=== PATIENT | female | born 1985 | race Caucasian/White ===

== ENCOUNTER 2021-05-04 03:14 | Emergency (ER) | payer OTHER ==
[~2021-05-04] VITALS: Ht 162.6 cm; Wt 79.5 kg
[~2021-05-04 03:14] MED LIST: D3400TAB PO; DULC100C PO; HYDR-3715 PO; IBUP-1022 PO; LORA-243 PO; MULTCAP PO; OXYC1TAB30 GT; PANT40TA29 PO; TRAZ-252 FT; VITA100L PO; ZOFR4TAB16 PO
[2021-05-04 03:59] LABS: HEMATOCRIT 42.1 % (36.0-47.0); HEMOGLOBIN 14.2 g/dl (12.0-15.5); MEAN CORPUSCULAR HGB CONC 33.7 g/dl (32.0-36.5); MEAN CORPUSCULAR VOLUME 91.9 fl (80.0-96.0); PLATELET COUNT, AUTOMATED 314 10^3/uL (150-450); RED BLOOD COUNT 4.58 10^6/uL (4.00-5.40); WHITE BLOOD COUNT 15.3 10^3/uL (4.0-10.0)
[2021-05-04 04:34] LABS: AMPHETAMINES LEVEL URINE NEGATIVE (NEGATIVE); BARBITURATES URINE NEGATIVE (NEGATIVE); BENZODIAZEPINES URINE NEGATIVE (NEGATIVE); CANNABINOIDS URINE POSITIVE (NEGATIVE); COCAINE METABOLITE URINE NEGATIVE (NEGATIVE); METHADONE URINE NEGATIVE (NEGATIVE); OPIATES URINE NEGATIVE (NEGATIVE); PHENCYCLIDINE URINE NEGATIVE (NEGATIVE)
[2021-05-04 04:36] LABS: HCG, SERUM QUALITATIVE NEGATIVE (NEGATIVE)
[2021-05-04 04:48] LABS: ACETAMINOPHEN LEVEL < 2.0 UG/ML (10.0-30.0); ALBUMIN 4.3 GM/DL (3.2-5.2); ALT/SGPT 20 U/L (12-78); BILIRUBIN,DIRECT 0.1 MG/DL (0.0-0.2); BILIRUBIN,TOTAL 0.5 MG/DL (0.2-1.0); BLOOD UREA NITROGEN 12 MG/DL (7-18); CALCIUM LEVEL 9.2 MG/DL (8.5-10.1); CARBON DIOXIDE LEVEL 26 MEQ/L (21-32); CHLORIDE LEVEL 103 MEQ/L (98-107); CREATININE FOR GFR 0.87 MG/DL (0.55-1.30); ETHYL ALCOHOL (ETHANOL) < 0.003 % (0.000-0.010); GLOMERULAR FILTRATION RATE > 60.0 (>60); GLUCOSE, FASTING 143 MG/DL (70-100); POTASSIUM SERUM 3.8 MEQ/L (3.5-5.1); SALICYLATE LEVEL 3.2 MG/DL (5.0-30.0); SODIUM LEVEL 139 MEQ/L (136-145); TOTAL PROTEIN 7.9 GM/DL (6.4-8.2)
[2021-05-04] MEDS ORDERED: ACETAMINOPHEN 500 MG TAB PO ONE (08:10)
[2021-05-04 12:10] VITALS: BP 115/56
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
== END 2021-05-04 16:19 | disposition home or self-care (01) ==
LOC: M ED 03:14
DX: F43.0 Acute stress reaction (principal); F12.10 Cannabis abuse, uncomplicated; Z88.0 Allergy status to penicillin; Z88.5 Allergy status to narcotic agent; Z91.018 Allergy to other foods; Z91.040 Latex allergy status

== ENCOUNTER 2021-05-24 17:37 | Inpatient (IN) | payer MEDICAID, OTHER ==
[~2021-05-24] VITALS: Ht 162.6 cm; Wt 73.6 kg
[2021-05-24 19:40] LABS: HEMATOCRIT 41.9 % (36.0-47.0); HEMOGLOBIN 13.7 g/dl (12.0-15.5); MEAN CORPUSCULAR HEMOGLOBIN 30.5 pg (27.0-33.0); MEAN CORPUSCULAR HGB CONC 32.7 g/dl (32.0-36.5); MEAN CORPUSCULAR VOLUME 93.3 fl (80.0-96.0); PLATELET COUNT, AUTOMATED 276 10^3/uL (150-450); RED BLOOD COUNT 4.49 10^6/uL (4.00-5.40); WHITE BLOOD COUNT 11.1 10^3/uL (4.0-10.0)
[2021-05-24 19:42] LABS: AMPHETAMINES LEVEL URINE NEGATIVE (NEGATIVE); BARBITURATES URINE NEGATIVE (NEGATIVE); BENZODIAZEPINES URINE NEGATIVE (NEGATIVE); CANNABINOIDS URINE POSITIVE (NEGATIVE); COCAINE METABOLITE URINE NEGATIVE (NEGATIVE); METHADONE URINE NEGATIVE (NEGATIVE); OPIATES URINE NEGATIVE (NEGATIVE); PHENCYCLIDINE URINE NEGATIVE (NEGATIVE)
[2021-05-24 19:45] LABS: HCG, SERUM QUALITATIVE NEGATIVE (NEGATIVE)
[2021-05-24 19:56] LABS: ACETAMINOPHEN LEVEL < 2.0 UG/ML (10.0-30.0); ALBUMIN 4.1 GM/DL (3.2-5.2); ALT/SGPT 23 U/L (12-78); BILIRUBIN,DIRECT 0.1 MG/DL (0.0-0.2); BILIRUBIN,TOTAL 0.3 MG/DL (0.2-1.0); BLOOD UREA NITROGEN 13 MG/DL (7-18); CALCIUM LEVEL 9.3 MG/DL (8.5-10.1); CARBON DIOXIDE LEVEL 27 MEQ/L (21-32); CHLORIDE LEVEL 106 MEQ/L (98-107); CREATININE FOR GFR 0.83 MG/DL (0.55-1.30); ETHYL ALCOHOL (ETHANOL) < 0.003 % (0.000-0.010); GLOMERULAR FILTRATION RATE > 60.0 (>60); GLUCOSE, FASTING 95 MG/DL (70-100); SALICYLATE LEVEL 3.2 MG/DL (5.0-30.0); SODIUM LEVEL 141 MEQ/L (136-145); TOTAL PROTEIN 7.8 GM/DL (6.4-8.2)
[2021-05-24] MEDS ORDERED: HOME MED LIST COMPLETE! XX SCH (21:20)
[2021-05-24 22:53] LABS: RSV AMPLIFICATION NEGATIVE (NEGATIVE)
[2021-05-24] MEDS ORDERED: OLANZapine ORAL DISINTEGRATING TAB 5MG PO PRN (23:25)
[2021-05-24] MEDS ORDERED: MAALOX 30 ML SUSP *UDC PO PRN (23:25)
[2021-05-24] MEDS ORDERED: hydrOXYzine 25 MG TAB PO PRN (23:25)
[2021-05-24] MEDS ORDERED: traZODone 50 MG TAB PO PRN (23:25)
[2021-05-24] MEDS ORDERED: ACETAMINOPHEN TAB 650MG DOSE (2X325MG) PO PRN (23:25)
[2021-05-24] MEDS ORDERED: MOM 30ML SUSPENSION UDC PO PRN (23:25)
[2021-05-25 00:24] VITALS: BP 116/58
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
[2021-05-25] MEDS: SERTRALINE HCL 50 MG TAB PO SCH (10:54)
--- NOTE | 2021-05-25 14:26 | CR.PDOC ---
General Date of Consultation: May 25, 2021 Attending Physician: Lynda Vasques MD Consultation HISTORY OF PRESENT ILLNESS: 35 y/o F with PMH of adjustment disorder, PTSD, uterine cancer s/p partial hysterectomy who was admitted to inpatient mental health that she diagnosis of unspecified depressive disorder and suicidal ideation. Please refer to psychiatric H&P. The patient on exam denied any current homicidal ideation, suicidal ideation, visual or auditory hallucinations, increased hopelessness but admits to occasional disrupted sleep. She states she has a history of depression and has had suicidal thoughts in the past, last suicide attempt was in 2018 but she was stopped by a passerby. She currently denies chest pain, shortness of breath, nausea, vomiting, fevers, chills. She complains of constipation. REVIEW OF SYSTEMS: CONSTITUTIONAL: Denies lack of energy, unexplained weight gain or weight loss, l oss of appetite, fever, night sweats EYES: Denies eye drainage, eye pain, visual changes, dry/irritated eye EARS, NOSE, MOUTH, THROAT: Denies difficulty hearing, ringing in ears, mouth sores, loose teeth, sore throat, facial numbness or pain NECK: Denies swollen glands CARDIOVASCULAR: Denies irregular heartbeat, racing heart, chest pains, swelling of feet or legs, pain in legs with walking RESPIRATORY: Denies shortness of breath, night sweats, wheezing, sputum production, oxygen at home, coughing up blood, cough lasting > 1 month GASTROINTESTINAL: Denies abdominal pain, bloody stool, diarrhea, heartburn, nausea, vomiting GENITOURINARY: Denies painful urination, bloody urine, frequent urination, urgency, leaking urine, impotence MUSCULOSKELETAL: Denies joint pain, muscle pain, leg swelling INTEGUMENTARY: Denies rash, itching, new skin lesion, change in existing skin lesion, hair loss or increase, breast changes. NEUROLOGICAL: Denies headaches, dizziness, difficulty walking, numbness or tingling PSYCHIATRIC: Denies mood swings, hallucinations PAST MEDICAL HISTORY: adjustment disorder, PTSD, hx of suicidal ideation/attempt, uterine cancer s/p partial hysterectomy PAST SURGICAL HISTORY: partial hysterectomy FAMILY HISTORY: maternal grandfather- MM paternal aunt- breast cancer paternal grandmother- breast cancer SOCIAL HISTORY: 1/2 PPD cigarettes for 26 years. Drinks alcohol socially. Denies illicit drug use ALLERGIES: Please see below. HOME MEDICATIONS: Please see below. PHYSICAL EXAMINATION: VS: Please see below CONSTITUTIONAL: No acute distress, resting comfortably, AAO x 3 EYES: PERRLA, EOM intact HENT, MOUTH: Normocephalic, atraumatic, moist mucous membranes NECK: SUPPLE, no JVD, no lymphadenopathy, no carotid bruit CV: Regular rate and rhythm, S1S2 normal, no murmurs/rubs/gallops RESPIRATORY: Clear to auscultation bilaterally, no rales/rhonchi/wheezes GI: BS positive in 4 quadrants, soft, nontender, nondistended, no rebound or guarding, no organomegaly : Deferred MUSCULOSKELETAL: Normal ROM. No cyanosis, clubbing, swelling, joint deformity, extremity edema INTEGUMENTARY: Intact, no rashes, no lesions, no erythema NEUROLOGIC: Cranial Nerves II-XII are intact, no focal deficits PSYCHIATRIC: Mood and affect are normal LABORATORY DATA: Please see below IMAGING: None ASSESSMENT: 35 y/o F admitted to [facility] for unspecified depressive d/o, suicidal ideations, PTSD. PLAN: Unspecified depressive d/o, suicide attempt -Please see psychiatry note, plan per primary team PTSD -Plan per primary team Constipation -Per patient takes miralax at home without it helping much -Encourage hydration throughout day, adding stool softner DISPOSITION: Thank you kindly for this consult. Will sign off but if needed again please let us know. Vital Signs/I&O Vital Signs Date Time Temp Pulse Resp B/P (MAP) Pulse Ox O2 Delivery O2 Flow Rate FiO2 05/25/21 00:24 97.1 68 16 116/58 (77) 96 Room Air Laboratory Data Labs 24H Laboratory Tests 2 05/24/21 19:03: Nucleated Red Blood Cells % (auto) 0.0, Anion Gap 8, Glomerular Filtration Rate > 60.0, Calcium Level 9.3, Total Bilirubin 0.3, Direct Bilirubin 0.1, Aspartate Amino Transf (AST/SGOT) 12, Alanine Aminotransferase (ALT/SGPT) 23, Alkaline Phosphatase 88, Total Protein 7.8, Albumin 4.1, Albumin/Globulin Ratio 1.1L, Thyroid Stimulating Hormone (TSH) 1.470, Human Chorionic Gonadotropin, Qual NEGATIVE, Salicylates Level 3.2L, Urine Opiates Screen NEGATIVE, Urine Methadone Screen NEGATIVE, Acetaminophen Level < 2.0L, Urine Barbiturates Screen NEGATIVE, Urine Phencyclidine Screen NEGATIVE, Urine Amphetamines Screen NEGATIVE, Urine Benzodiazepines Screen NEGATIVE, Urine Cocaine Metabolite Screen NEGATIVE, Urine Cannabinoids Screen POSITIVEH, Ethyl Alcohol Level < 0.003 05/24/21 22:09: Coronavirus (COVID-19)(PCR) NEGATIVE, Influenza Type A (RT-PCR) NEGATIVE, Influenza Type B (RT-PCR) NEGATIVE, Respiratory Syncytial Virus (PCR) NEGATIVE CBC/BMP Laboratory Tests 05/24/21 19:03 Allergies Coded Allergies: Penicillins (Verified Allergy, Intermediate, Hives and SOB, 05/04/21) amoxicillin (Verified Allergy, Intermediate, Hives and SOB, 05/04/21) doxycycline (Verified Allergy, Intermediate, ITCHY, HIVES, 05/24/21) [place] (Verified Allergy, Mild, Hives, 05/04/21) codeine (Verified Allergy, Mild, Hives and Dizziness, 05/04/21) latex (Verified Allergy, Mild, HIVES, 05/04/21) Home Medications No Active Prescriptions or Reported Meds Lynda Vasques MD May 25, 2021 14:26
[2021-05-25] MEDS ORDERED: MIRALAX *UNIT DOSE* 17GM PACKET PO PRN (14:30)
[2021-05-25 19:27] VITALS: BP 118/60
[2021-05-25] MEDS: DOCUSATE SODIUM 100MG CAPSULE PO SCH (21:00)
[2021-05-25] MEDS: PRAZOSIN 1 MG CAP PO SCH (21:09)
[2021-05-26 07:32] VITALS: BP 96/51
[2021-05-26] MEDS: DOCUSATE SODIUM 100MG CAPSULE PO SCH ×2 (09:00→21:09)
[2021-05-26] MEDS: SERTRALINE HCL 50 MG TAB PO SCH (10:13)
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
[2021-05-26 19:15] VITALS: BP 120/80
[2021-05-26 21:09] VITALS: BP 131/71
[2021-05-26] MEDS: PRAZOSIN 1 MG CAP PO SCH (21:09)
[2021-05-27 06:25] VITALS: BP 106/54
[2021-05-27] MEDS: SERTRALINE HCL 50 MG TAB PO SCH (08:07)
[2021-05-27] MEDS: DOCUSATE SODIUM 100MG CAPSULE PO SCH ×2 (08:08→20:47)
[2021-05-27] MEDS: ONDANSETRON 4 MG TAB PO SCH ×2 (12:04→17:28)
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
[2021-05-27 22:00] VITALS: BP 114/59
[2021-05-28] MEDS: ONDANSETRON 4 MG TAB PO SCH ×3 (00:27→11:46)
[2021-05-28 06:47] VITALS: BP 111/64
[2021-05-28] MEDS: DOCUSATE SODIUM 100MG CAPSULE PO SCH (08:01)
[2021-05-28] MEDS: SERTRALINE HCL 50 MG TAB PO SCH (08:01)
[2021-05-28] MEDS ORDERED: TRAZ-252 PO (11:46)
[2021-05-28] MEDS ORDERED: SERT50TA29 PO (11:46)
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
--- NOTE | 2021-05-30 18:41 | MHIPNPDOC ---
[facility] Progress Note Progress Note DATE OF SERVICE: 05/24/21 THIS IS A LATE ENTRY On 05/24/21, Emergency staff member presented Ms. Viviana Salas to me, as I was the Psychiatrist precision grinder external. I t was reported she had made suicidal statements to her website developer who reported this to [facility] Police. The patient was conside red to be in danger to herself, since she was suicidal and her judgment and insight seemed to be limited at that time Vital Signs Vital Signs Date Time Temp Pulse Resp B/P (MAP) Pulse Ox O2 Delivery O2 Flow Rate FiO2 05/28/21 06:47 97.6 54 16 111/64 (80) 95 Room Air Current Medications Current Medications Medications (Trade) Dose Ordered Sig/Temi Route PRN Reason Start Time Stop Time Status Last Admin Dose Admin Acetaminophen (Tylenol Tab) 650 mg Q6HP PRN PO HEADACHE or MILD DISCOMFORT 05/24/21 23:25 05/28/21 14:07 DC Al Hydrox/Mg Hydrox/Simethicone (Mylanta) 30 ml Q4HP PRN PO HEARTBURN/INDIGESTION 05/24/21 23:25 05/28/21 14:07 DC Docusate Sodium (Colace) 100 mg BID PO 05/25/21 21:00 05/28/21 14:07 DC 05/28/21 08:01 Home Med (Home Med List Complete!) ASDIRECTED XX 05/24/21 21:20 05/24/21 21:25 DC Hydroxyzine HCl (Atarax) 25 mg Q8H PRN PO ANXIETY 05/24/21 23:25 05/28/21 14:07 DC Magnesium Hydroxide (Milk Of Magnesia) 30 ml DAILYPRN PRN PO CONSTIPATION 05/24/21 23:25 05/28/21 14:07 DC Olanzapine (ZyPREXA ZYDIS) 5 mg Q6HP PRN PO AGITATION 05/24/21 23:25 05/28/21 14:07 DC Ondansetron HCl (Zofran) 4 mg Q6H PO 05/27/21 12:00 05/28/21 14:07 DC 05/28/21 11:46 Polyethylene Glycol (Miralax) 1 pkt DAILYPRN PRN PO CONSTIPATION 05/25/21 14:30 05/28/21 14:07 DC Prazosin HCl (Minipress) 1 mg QHS PO 05/25/21 21:00 05/27/21 09:29 DC 05/26/21 21:09 Sertraline HCl (Zoloft) 50 mg DAILY PO 05/25/21 09:00 05/28/21 14:07 DC 05/28/21 08:01 Trazodone HCl (Desyrel) 50 mg QHSP PRN PO INSOMNIA 05/24/21 23:25 05/28/21 14:07 DC 05/27/21 22:56 Allergies Coded Allergies: Penicillins (Verified Allergy, Intermediate, Hives and SOB, 05/04/21) amoxicillin (Verified Allergy, Intermediate, Hives and SOB, 05/04/21) doxycycline (Verified Allergy, Intermediate, ITCHY, HIVES, 05/24/21) [place] (Verified Allergy, Mild, Hives, 05/04/21) codeine (Verified Allergy, Mild, Hives and Dizziness, 05/04/21) latex (Verified Allergy, Mild, HIVES, 05/04/21) TARSHA DELGADILLO MD May 30, 2021 18:41
== END 2021-05-28 14:06 | disposition home or self-care (01) | DRG 755 ==
LOC: M ED 17:37 → M PSY 23:45 → M ED 23:45 → M PSY 05-25 10:58
PROVIDERS: ADMIT Student in an Organized Health Care Education/Training Program; ATTEND Student in an Organized Health Care Education/Training Program
DX: F43.10 Post-traumatic stress disorder, unspecified (principal); F32.9 Major depressive disorder, single episode, unspecified; F17.210 Nicotine dependence, cigarettes, uncomplicated; K59.00 Constipation, unspecified; Z81.1 Family history of alcohol abuse and dependence; Z62.810 Personal history of physical and sexual abuse in childhood; Z91.410 Personal history of adult physical and sexual abuse; Z81.8 Family history of other mental and behavioral disorders; Z20.822 Contact with and (suspected) exposure to COVID-19; Z88.0 Allergy status to penicillin; Z88.1 Allergy status to other antibiotic agents; Z91.018 Allergy to other foods; Z91.040 Latex allergy status; Z91.51 Personal history of suicidal behavior; Z85.41 Personal history of malignant neoplasm of cervix uteri

== ENCOUNTER 2021-06-05 23:33 | Inpatient (IN) | payer MEDICAID, OTHER ==
[~2021-06-05] VITALS: Ht 162.6 cm; Wt 75.3 kg
[~2021-06-05 23:33] MED LIST changes: +SERT50TA29 PO; +TRAZ-252 PO
--- OUTSIDE RECORDS SUMMARY | 2021-06-05 23:38 | CCD ---
Author Viviana Raines Organization Unknown Address [address] [address] Phone Care Team Providers Care Spot Welder Body Assembly Name Role Phone Iona Oliver PCP Chief Complaint and Reason for Visit Chief Complaint Allergies, Adverse Reactions, Alerts No Data in Section Problem List Concept Problem Description Status Start Date Created Date Resolv ed Date Snomed Code F32.9 Unspecified depressive Disorder Active 04/04/20 21 Medications No Data in Section Social History Social History Element Description Concept Effective Date Smoking Status Unknown if ever smoked [id number] Immunizations No Data in Section Vital Signs No Data in Section Procedures Date Concept Id Description Targeted Site Concept Targeted Site Concept Type 04/04/2021 44513 Extended Individual Psychotherapy - 45 min CPT Patient has no history of implantable de vices Encounters Encounter Start Date End Date Encounter Type Description Diagnosis Di agnosis Desc Location Author First Name Author Last Name Npid Taxonomy Cod e Taxonomy Desc Phone Number Location Addr1 Location Addr2 Location [facility] Location [facility] [id number] 04/04/2021 04/04/2021 96763 Extended Individual Psych otherapy - 45 min F32.9 Major depressive disorder, single episode, unspecified [facility] Benito Monson [id number] Mental Health [id number] [address] [address] Plan of Treatment No Data in Section Lab Results No Data in Section Instructions No Data in Section Insurance Providers Insurance Id Policy Effective Date Policy Thru Date Company N hieu [id number] 2021 SELF PAY
--- OUTSIDE RECORDS SUMMARY | 2021-06-05 23:38 | CCD ---
Author Author [facility] Organization [facility] Address Unknown Phone Unavailable Care Team Providers Care [facility] Teacher Name Role Phone Iona Oliver Unavailable Iona Oliver Unavailable Re-disclosure Warning The records that you are about to access may contain information from federally-assisted alcohol or drug abuse programs. If such information is present, then the following federally mandated warning applies: This information has been disclosed to you from records protected by federal confidentiality rules (42 CFR part 2). The federal rules prohibit you from making any further disclosure of this information unless further disclosure is expressly permitted by the written consent of the person to whom it pertains or as otherwise permitted by 42 CFR part 2. A general authorization for the release of medical or other information is NOT sufficient for this purpose. The Federal rules restrict any use of the information to criminally investigate or prosecute any alcohol or drug abuse patient.The records that you are about to access may contain highly sensitive health information, the redisclosure of which is protected by Article 27-F of the [facility] Public Health law. If you continue you may have access to information: Regarding HIV / AIDS; Provided by facilities licensed or operated by the [facility] Office of Mental Health; or Provided by the [facility] Office for People With Developmental Disabilities. If such information is present, then the following [facility] mandated warning applies: This information has been disclosed to you from confidential records which are protected by state law. State law prohibits you from making any further disclosure of this information without the specific written consent of the person to whom it pertains, or as otherwise permitted by law. Any unauthorized further disclosure in violation of state law may result in a fine or snf sentence or both. A general authorization for the release of medical or other information is NOT sufficient authorization for further disc losure. Encounters Encounter Providers Location Date Indications Data Source(s ) Extended Individual Psychotherapy - 45 min Attender: Garfield Magñaa [facility] Longterm 04/04/2021 09:30:00 AM EDT - 04/04/2021 09:30:00 AM EDT [facility] ([facility]) Attender: Iona Oliver 04/04/2021 12:00:00 AM E DT [facility] ([facility]) Medications Medication Brand Name Start Date Product Form Dose Route Admi nistrative Instructions Pharmacy Instructions Status Indications Reaction Description Data Source(s) 50 mg 05/29/2021 12:00:00 AM EDT tablet 7 TAKE ONE TABLET BY MOUTH DAILY FOR MOOD TAKE ONE TABLET BY MOUTH DAILY FOR MOOD SOLD: 05/29/2021 [facility] Insurance Providers Payer name Policy type / Coverage type Policy ID Covered libertarian ID Covered libertarian's relationship to mejia Policy Mejia Plan Information Medicaid P [id number] S [id number] Managed Care BCBS O [id number] S [id number] Managed Care - [facility] Community Plan P [id number] S [id number] Managed Care - Community Plan [facility] P [id number] S [id number] Medicaid S [id number] S [id number] OTHER LIABILITY P [id number] S [id number] [facility] [id number] SP [id number] Medicaid S [id number] S [id number] [employer]UE [employer] PLAN [id number] SP [id number] O BLUE [id number] SP [id number] [facility] COMMUNITY PL[facility] [id number] SP [id number] [facility] [id number] SP [id number] [facility] COMMUNITY PLAN [facility] [id number] SP [id number] [facility] [id number] SP [id number] [facility] P [id number] S [id number] Problems, Conditions, and Diagnoses Code Display Name Description Problem Type Effective Dates Data Source(s) F32.9 Major depressive disorder, single episod e, unspecified Unspecified depressive Disorder Condition 04/04/2021 12:00:00 AM EDT [facility] ( e [facility]) Surgeries/Procedures Procedure Description Date Indications Data Source(s) Extended Individual Psychotherapy - 45 min 04/04/2021 12:00:00 AM EDT - 04/04/2021 12:00:00 AM EDT [facility] ([facility]) Extended Individual Psychotherapy - 45 min 12:00:00 AM EDT [facility] ([facility]) Results ID Date Data Source [id number] 05/24/2021 10:09:00 PM EDT [facility] Name Value Range Interpretation Code Description Data Frances rce(s) Supporting Document(s) SARS coronavirus 2 RNA [Presence] in Res piratory specimen by [facility] with probe detection NEGATIVE [facility] This lab was ordered by [facility] a nd reported by [facility]. Procedure Social History Code Duration Value Status Description Data Source(s ) Smoking 04/04/2021 12:00:00 AM EDT Unknown if ever smoked comp leted Unknown if ever smoked [facility] ([facility] [address])
[2021-06-06 00:42] LABS: HEMATOCRIT 43.6 % (36.0-47.0); HEMOGLOBIN 13.8 g/dl (12.0-15.5); MEAN CORPUSCULAR HEMOGLOBIN 30.4 pg (27.0-33.0); MEAN CORPUSCULAR HGB CONC 31.7 g/dl (32.0-36.5); PLATELET COUNT, AUTOMATED 293 10^3/uL (150-450); RED BLOOD COUNT 4.54 10^6/uL (4.00-5.40); WHITE BLOOD COUNT 11.9 10^3/uL (4.0-10.0)
[2021-06-06 00:43] LABS: HCG, SERUM QUALITATIVE NEGATIVE (NEGATIVE)
[2021-06-06 01:23] LABS: ACETAMINOPHEN LEVEL < 2.0 UG/ML (10.0-30.0); ALBUMIN 4.1 GM/DL (3.2-5.2); ALT/SGPT 17 U/L (12-78); BILIRUBIN,DIRECT < 0.1 MG/DL (0.0-0.2); BILIRUBIN,TOTAL 0.2 MG/DL (0.2-1.0); BLOOD UREA NITROGEN 14 MG/DL (7-18); CARBON DIOXIDE LEVEL 30 MEQ/L (21-32); CHLORIDE LEVEL 108 MEQ/L (98-107); ETHYL ALCOHOL (ETHANOL) < 0.003 % (0.000-0.010); GLOMERULAR FILTRATION RATE > 60.0 (>60); GLUCOSE, FASTING 121 MG/DL (70-100); POTASSIUM SERUM 4.7 MEQ/L (3.5-5.1); SALICYLATE LEVEL 3.3 MG/DL (5.0-30.0); SODIUM LEVEL 142 MEQ/L (136-145); TOTAL PROTEIN 7.7 GM/DL (6.4-8.2)
[2021-06-06 01:24] LABS: AMPHETAMINES LEVEL URINE NEGATIVE (NEGATIVE); BARBITURATES URINE NEGATIVE (NEGATIVE); BENZODIAZEPINES URINE NEGATIVE (NEGATIVE); CANNABINOIDS URINE POSITIVE (NEGATIVE); COCAINE METABOLITE URINE NEGATIVE (NEGATIVE); METHADONE URINE NEGATIVE (NEGATIVE); OPIATES URINE NEGATIVE (NEGATIVE); PHENCYCLIDINE URINE NEGATIVE (NEGATIVE)
[2021-06-06] MEDS ORDERED: MOM 30ML SUSPENSION UDC PO PRN (02:55)
[2021-06-06] MEDS ORDERED: ACETAMINOPHEN TAB 650MG DOSE (2X325MG) PO PRN (02:55)
--- OUTSIDE RECORDS SUMMARY | 2021-06-06 02:59 | CCD ---
Author Author [facility] Organization [facility] Address Unknown Phone Unavailable Care Team Providers Care Behavioral Therapy Coordinator Name Role Phone Iona Oliver Unavailable Iona [...] is protected by Article 27-F of the [facility] Public Health law. If you continue you may have access to information: Regarding HIV / AIDS; Provided by facilities licensed or operated by the [facility] Office of Mental Health; or Provided by the [facility] Office for People With Developmental Disabilities. If such information is present, then the following [facility] mandated warning applies: This information has been [...] law may result in a fine or prison sentence or both. A general authorization for the release of medical or other information is NOT sufficient authorization for further disc losure. Encounters Encounter Providers Location Date Indications Data Source(s ) Extended Individual Psychotherapy - 45 min Attender: Garfield Magaña [facility] 04/04/2021 09:30:00 AM EDT - 04/04/2021 09:30:00 AM EDT [facility] ([facility]) Attender: Iona Oliver 04/04/2021 12:00:00 AM E DT [facility] ([facility]) Medications Medication Brand Name Start Date Product Form Dose Route Admi nistrative Instructions Pharmacy Instructions Status Indications Reaction Description Data Source(s) 50 mg 05/29/2021 12:00:00 AM EDT tablet 7 TAKE ONE TABLET BY MOUTH DAILY FOR MOOD TAKE ONE TABLET BY MOUTH DAILY FOR MOOD SOLD: 05/29/2021 [facility] Insurance Providers Payer name Policy type / Coverage type Policy ID Covered constitution party ID Covered constitution party's relationship to mejia Policy Mejia Plan Information Medicaid P [id number] S [id number] Managed Care BCBS O [id number] S [id number] Managed Care - [facility] Community Plan P [id number] S [id number] Managed Care - Community Plan [facility] P [id number] S [id number] Medicaid S [id number] S [id number] OTHER LIABILITY P [id number] S [id number] [facility] [id number] SP [id number] Medicaid S [id number] S [id number] BLUE CROSS KILPATRICK PLAN [id number] SP [id number] O BLUE [id number] SP [id number] [id number] SP [id number] [facility] [id number] SP [id number] [facility] [id number] SP [id number] [facility] [id number] SP [id number] [facility] P [id number] S [id number] Problems, Conditions, and Diagnoses Code Display Name Description Problem Type Effective Dates Data Source(s) F32.9 Major depressive disorder, single episod e, unspecified Unspecified depressive Disorder Condition 04/04/2021 12:00:00 AM EDT [facility] ( e [facility]) Surgeries/Procedures Procedure Description Date Indications Data Source(s) Extended Individual Psychotherapy - 45 min 04/04/2021 12:00:00 AM EDT - 04/04/2021 12:00:00 AM EDT [facility] ([facility]) Extended Individual Psychotherapy - 45 min 12:00:00 AM EDT [facility] ([facility]) Results ID Date Data Source [id number] 05/24/2021 10:09:00 PM EDT [facility] Name Value Range Interpretation Code Description Data Frances rce(s) Supporting Document(s) SARS coronavirus 2 RNA [Presence] in Res piratory specimen by PARISH with probe detection NEGATIVE [facility] This lab was ordered by [facility] a nd reported by [facility]. Procedure Social History Code Duration Value Status Description Data Source(s ) Smoking 04/04/2021 12:00:00 AM EDT Unknown if ever smoked comp leted Unknown if ever smoked [facility] ([facility])
[2021-06-06] MEDS ORDERED: GLUCTAB6 PO (03:07)
[2021-06-06] MEDS ORDERED: SERT-141 PO (03:07)
[2021-06-06] MEDS ORDERED: VITATAB73 PO (03:07)
[2021-06-06] MEDS ORDERED: ASPI1CHW3 PO (03:07)
[2021-06-06] MEDS ORDERED: FISH1000 PO (03:07)
[2021-06-06] MEDS ORDERED: EMER1PAK PO (03:07)
[2021-06-06] MEDS ORDERED: HOME MED LIST COMPLETE! XX SCH (03:10)
--- OUTSIDE RECORDS SUMMARY | 2021-06-06 03:34 | CCD ---
Author Author [facility] Organization [facility] Address Unknown Phone Unavailable Care Team Providers Care Estate Manager Name Role Phone Iona Oliver Unavailable Iona [...] is protected by Article 27-F of the [facility] Public Health law. If you continue you may have access to information: Regarding HIV / AIDS; Provided by facilities licensed or operated by the [facility] Office of Mental Health; or Provided by the [facility] Office for People With Developmental Disabilities. If such information is present, then the following [facility] mandated warning applies: This information has [...] law may result in a fine or long-term sentence or both. A general authorization for the release of medical or other information is NOT sufficient authorization for further disc losure. Encounters Encounter Providers Location Date Indications Data Source(s ) Extended Individual Psychotherapy - 45 min Attender: Garfield Magaña [facility] Intermediate 04/04/2021 09:30:00 AM EDT - 04/04/2021 09:30:00 AM EDT [facility] ([facility]) Attender: Iona Oliver 04/04/2021 12:00:00 AM E DT [facility] ([facility]) Medications Medication Brand Name Start Date Product Form Dose Route Admi nistrative Instructions Pharmacy Instructions Status Indications Reaction Description Data Source(s) 50 mg 05/29/2021 12:00:00 AM EDT tablet 7 TAKE ONE TABLET BY MOUTH DAILY FOR MOOD TAKE ONE TABLET BY MOUTH DAILY FOR MOOD SOLD: 05/29/2021 [facility] Insurance Providers Payer name Policy type / Coverage type Policy ID Covered republican ID Covered republican's relationship to mejia Policy Mejia Plan Information Medicaid P [id number] S [id number] Managed Care BCBS O [id number] S [id number] Managed Care - [facility] Community Plan P [id number] S [id number] Managed Care - Community Plan [facility] P [id number] S [id number] Medicaid S [id number] S [id number] OTHER LIABILITY P [id number] S [id number] [facility] [id number] SP [id number] Medicaid S [id number] S [id number] BLUE CROSS KILPATRICK PLAN [id number] SP [id number] O BLUE [id number] SP [id number] [facility] [id number] SP [id number] [facility] [id number] SP [id number] [facility] [id number] SP [id number] [facility] [id number] SP [id number] [facility] P [id number] S [id number] Problems, Conditions, and Diagnoses Code Display Name Description Problem Type Effective Dates Data Source(s) F32.9 Major depressive disorder, single episod e, unspecified Unspecified depressive Disorder Condition 04/04/2021 12:00:00 AM EDT [facility] ( e [facility]) Surgeries/Procedures Procedure Description Date Indications Data Source(s) Extended Individual Psychotherapy - 45 min 04/04/2021 12:00:00 AM EDT - 04/04/2021 12:00:00 AM EDT [facility] ([facility]) Extended Individual Psychotherapy - 45 min 12:00:00 AM EDT [facility] ([facility]) Results ID Date Data Source [id number] 05/24/2021 10:09:00 PM EDT [facility] Name Value Range Interpretation Code Description Data Frances rce(s) Supporting Document(s) SARS coronavirus 2 RNA [Presence] in Res piratory specimen by PARISH with probe detection NEGATIVE [facility] This lab was ordered by [facility] a nd reported by [facility]. Procedure Social History Code Duration Value Status Description Data Source(s ) Smoking 04/04/2021 12:00:00 AM EDT Unknown if ever smoked comp leted Unknown if ever smoked [facility] ([facility])
[2021-06-06 04:00] VITALS: BP 129/79
[2021-06-06] MEDS ORDERED: SERTRALINE HCL 25 MG TABLET PO SCH (09:00)
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
[2021-06-06] MEDS: NICOTINE 14 MG/24 HR TRANSDERMAL TD SCH (10:58)
--- NOTE | 2021-06-06 13:04 | CR.PDOC ---
General Date of Consultation: Jun 06, 2021 Attending Physician: Lynda Vasques MD Consultation HISTORY OF PRESENT ILLNESS: 35 y/o F with PMH of adjustment disorder, PTSD, uterine cancer s/p partial hysterectomy who was admitted to inpatient mental health that she diagnosis of unspecified depressive disorder and suicidal ideation. Threatened to drink Elsa- Gail and her later called 911. [place] the bridge and admitted to depressive symptoms. The patient was brought to [facility] for further evaluation where she was admitted to inpatient mental health for diagnosis above. The patient had a recent hospitalization earlier this month for similar diagnosis. On my evaluation today, the patient denied any current homicidal ideation, suicidal ideation, visual or auditory hallucinations, increased hopelessness but admits to occasional disrupted sleep. The patient states that she did not threatened to kill herself Elsa-Gail but instead that "[place]", she states that [employer] on the phone changed it to say this. She currently denies chest pain, shortness of breath, nausea, vomiting, fevers, chills. REVIEW OF SYSTEMS: CONSTITUTIONAL: Denies lack of energy, unexplained weight gain or weight loss, loss of appetite, fever, night sweats EYES: Denies eye drainage, eye pain, visual changes, dry/irritated eye EARS, NOSE, MOUTH, THROAT: Denies difficulty hearing, ringing in ears, mouth sores, loose teeth, sore throat, facial numbness or pain NECK: Denies swollen glands CARDIOVASCULAR: Denies irregular heartbeat, racing heart, chest pains, swelling of feet or legs, pain in legs with walking RESPIRATORY: Denies shortness of breath, night sweats, wheezing, sputum production, oxygen at home, coughing up blood, cough lasting > 1 month GASTROINTESTINAL: Denies abdominal pain, bloody stool, diarrhea, heartburn, nausea, vomiting GENITOURINARY: Denies painful urination, bloody urine, frequent urination, urgency, leaking urine, impotence MUSCULOSKELETAL: Denies joint pain, muscle pain, leg swelling INTEGUMENTARY: Denies rash, itching, new skin lesion, change in existing skin lesion, hair loss or increase, breast changes. NEUROLOGICAL: Denies headaches, dizziness, difficulty walking, numbness or tingling PSYCHIATRIC: Denies mood swings, hallucinations PAST MEDICAL HISTORY: adjustment disorder, PTSD, hx of suicidal ideation/attempt, uterine cancer s/p partial hysterectomy, depression PAST SURGICAL HISTORY: partial hysterectomy FAMILY HISTORY: maternal grandfather- MM paternal aunt- breast cancer paternal grandmother- breast cancer SOCIAL HISTORY: 1/2 PPD cigarettes for 26 years. Drinks alcohol socially. Denies illicit drug use ALLERGIES: Please see below. HOME MEDICATIONS: Please see below. PHYSICAL EXAMINATION: VS: Please see below CONSTITUTIONAL: No acute distress, resting comfortably, AAO x 3 EYES: PERRLA, EOM intact HENT, MOUTH: Normocephalic, atraumatic, moist mucous membranes NECK: SUPPLE, no JVD, no lymphadenopathy, no carotid bruit CV: Regular rate and rhythm, S1S2 normal, no murmurs/rubs/gallops RESPIRATORY: Clear to auscultation bilaterally, no rales/rhonchi/wheezes GI: BS positive in 4 quadrants, soft, nontender, nondistended, no rebound or guarding, no organomegaly : Deferred MUSCULOSKELETAL: Normal ROM. No cyanosis, clubbing, swelling, joint deformity, extremity edema INTEGUMENTARY: Intact, no rashes, no lesions, no erythema NEUROLOGIC: Cranial Nerves II-XII are intact, no focal deficits PSYCHIATRIC: Mood and affect are normal LABORATORY DATA: Please see below IMAGING: None ASSESSMENT: 35 y/o F admitted to [facility] for unspecified depressive d/o, suicidal ideations, PTSD. PLAN: Unspecified depressive d/o, suicidal ideation -Please see psychiatry note, plan per primary team PTSD -Plan per primary team DISPOSITION: Thank you kindly for this consult. Will sign off but if needed again please let us know. Vital Signs/I&O Vital Signs Date Time Temp Pulse Resp B/P (MAP) Pulse Ox O2 Delivery O2 Flow Rate FiO2 06/06/21 10:30 Room Air 06/06/21 04:00 97.6 62 16 129/79 (96) 97 Laboratory Data Labs 24H Laboratory Tests 2 06/05/21 23:59: Nucleated Red Blood Cells % (auto) 0.0, Anion Gap 4L, Glomerular Filtration Rate > 60.0, Calcium Level 9.0, Total Bilirubin 0.2, Direct Bilirubin < 0.1, Aspartate Amino Transf (AST/SGOT) 14, Alanine Aminotransferase (ALT/SGPT) 17, Alkaline Phosphatase 80, Total Protein 7.7, Albumin 4.1, Albumin/Globulin Ratio 1.1L, Thyroid Stimulating Hormone (TSH) 1.250, Human Chorionic Gonadotropin, Qual NEGATIVE, Salicylates Level 3.3L, Urine Opiates Screen NEGATIVE, Urine Methadone Screen NEGATIVE, Acetaminophen Level < 2.0L, Urine Barbiturates Screen NEGATIVE, Urine Phencyclidine Screen NEGATIVE, Urine Amphetamines Screen NEG ATIVE, Urine Benzodiazepines Screen NEGATIVE, Urine Cocaine Metabolite Screen NEGATIVE, Urine Cannabinoids Screen POSITIVEH, Ethyl Alcohol Level < 0.003 06/06/21 02:54: Coronavirus (COVID-19)(PCR) NEGATIVE CBC/BMP Laboratory Tests 06/05/21 23:59 Allergies Coded Allergies: Penicillins (Verified Allergy, Intermediate, Hives and SOB, 05/04/21) amoxicillin (Verified Allergy, Intermediate, Hives and SOB, 05/04/21) doxycycline (Verified Allergy, Intermediate, ITCHY, HIVES, 05/24/21) Babatunde (Verified Allergy, Mild, Hives, 05/04/21) codeine (Verified Allergy, Mild, Hives and Dizziness, 05/04/21) latex (Verified Allergy, Mild, HIVES, 05/04/21) Home Medications Scheduled Ascorbic Acid/Multivit-Min (Emergen-C 1,000 mg Packet) 1,000 Mg Effpowdpkt, 1 BENJAMIN PO QWEEK, (Reported) Gluc Perera/Chondro Perera A/Vit C/Mn (Glucosamine Chondroitin Tab) 1 Each Tablet, 1 TAB PO QWEEK, (Reported) FRIDAYS [place]-3 Fatty Acids/Fish Oil (Fish Oil 1,000 mg Capsule) 1 Each Capsule, 1,000 MG PO 2XWK, (Reported) FRIDAY AND FRIDAY Sertraline Hcl (Sertraline HCl) 50 Mg Tablet, 50 MG PO Q2D, (Reported) EVERY OTHER NIGHT Vitamin B Complex (Vitamin B Complex) 1 Each Tablet, 1 TAB PO 3XW, (Reported) FRIDAY, FRIDAY AND FRIDAY Scheduled PRN Aspirin (Aspirin) 81 Mg Tab.chew, 81 MG PO DAILY PRN for HEADACHE, (Reported) Lynda Vasques MD Jun 06, 2021 13:04
[2021-06-06] MEDS: SERTRALINE HCL 25 MG TABLET PO SCH (15:09)
[2021-06-06 17:37] VITALS: BP 109/58
[2021-06-06] MEDS: ARIPiprazole 10 MG TAB PO SCH (22:19)
[2021-06-07] MEDS: ARIPiprazole 10 MG TAB PO SCH ×2 (03:00→21:00)
[2021-06-07 06:03] VITALS: BP 124/61
[2021-06-07 08:33] LABS: CHOLESTEROL RISK RATIO 2.934 (<5)
[2021-06-07 08:55] VITALS: BP 100/60
[2021-06-07] MEDS: SERTRALINE HCL 25 MG TABLET PO SCH (09:29)
[2021-06-07] MEDS: NICOTINE 14 MG/24 HR TRANSDERMAL TD SCH (09:29)
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
[2021-06-07 17:55] VITALS: BP 135/65
[2021-06-08 06:45] VITALS: BP 137/56
[2021-06-08] MEDS: NICOTINE 14 MG/24 HR TRANSDERMAL TD SCH (08:47)
[2021-06-08] MEDS: SERTRALINE HCL 25 MG TABLET PO SCH (08:47)
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
[2021-06-08] MEDS ORDERED: SODIUM CHLORIDE NASAL 0.65% SPRAY BTL (OCEAN) PRN (12:45)
[2021-06-08 18:57] VITALS: BP 130/70
[2021-06-08] MEDS: ARIPiprazole 2 MG TAB PO SCH (20:17)
[2021-06-09 07:28] VITALS: BP 112/62
[2021-06-09] MEDS: NICOTINE 14 MG/24 HR TRANSDERMAL TD SCH (08:33)
[2021-06-09] MEDS: SERTRALINE HCL 25 MG TABLET PO SCH (08:33)
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
[2021-06-09] MEDS: MAALOX 30 ML SUSP *UDC PO PRN (14:02)
[2021-06-09 18:42] VITALS: BP 141/69
[2021-06-09] MEDS: traZODone 50 MG TAB PO PRN (20:45)
[2021-06-09] MEDS: ARIPiprazole 2 MG TAB PO SCH (20:45)
[2021-06-10 06:00] VITALS: BP 145/72
[2021-06-10] MEDS: SERTRALINE HCL 25 MG TABLET PO SCH (08:20)
[2021-06-10] MEDS: NICOTINE 14 MG/24 HR TRANSDERMAL TD SCH (08:20)
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
[2021-06-10] MEDS: MAALOX 30 ML SUSP *UDC PO PRN (14:10)
[2021-06-10 18:36] VITALS: BP 119/62
[2021-06-10] MEDS: ARIPiprazole 2 MG TAB PO SCH (20:10)
[2021-06-10] MEDS: traZODone 50 MG TAB PO PRN (22:12)
[2021-06-11] MEDS: SERTRALINE HCL 25 MG TABLET PO SCH (08:26)
[2021-06-11] MEDS: NICOTINE 14 MG/24 HR TRANSDERMAL TD SCH (08:26)
[2021-06-11] MEDS ORDERED: Sodium Chloride Nasal Spray (08:42)
[2021-06-11] MEDS ORDERED: ABIL1TAB13 PO (08:42)
[2021-06-11] MEDS ORDERED: SERT25TA21 PO (08:42)
[2021-06-11] MEDS ORDERED: NICO14PA TD (08:42)
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
== END 2021-06-11 12:32 | disposition home or self-care (01) | DRG 751 ==
LOC: M ED 23:33 → M ED INP 06-06 02:55 → M PSY 06-06 03:59
PROVIDERS: ADMIT Student in an Organized Health Care Education/Training Program; ATTEND Student in an Organized Health Care Education/Training Program
DX: F32.3 Major depressive disorder, single episode, severe with psychotic features (principal); R45.851 Suicidal ideations; F12.20 Cannabis dependence, uncomplicated; F17.210 Nicotine dependence, cigarettes, uncomplicated; Z62.810 Personal history of physical and sexual abuse in childhood; Z20.822 Contact with and (suspected) exposure to COVID-19; Z79.899 Other long term (current) drug therapy; Z88.0 Allergy status to penicillin; Z88.1 Allergy status to other antibiotic agents; Z88.5 Allergy status to narcotic agent; Z91.018 Allergy to other foods; Z91.040 Latex allergy status; Z85.42 Personal history of malignant neoplasm of other parts of uterus

== ENCOUNTER 2022-02-20 15:12 | Emergency (ER) | payer MEDICAID, OTHER ==
[~2022-02-20] VITALS: Ht 162.6 cm; Wt 65.9 kg
[~2022-02-20 15:12] MED LIST changes: +ABIL1TAB13 PO; +ASPI1CHW3 PO; +EMER1PAK PO; +FISH1000 PO; +GLUCTAB7 PO; +NICO14PA TD; +SERT-141 PO; +SERT25TA21 PO; +Sodium Chloride Nasal Spray; +VITATAB73 PO
[2022-02-20 15:33] VITALS: BP 155/63
== END 2022-02-20 18:53 | disposition left against medical advice (07) ==
LOC: M ED 15:12 → EDBD 15:12 → M ED 18:53
DX: Z53.21 Procedure and treatment not carried out due to patient leaving prior to being seen by health care provider (principal)

== ENCOUNTER → 2022-02-26 | Outpatient (REF) | LOC: M PLAIMG 10:30 | PROVIDERS: ATTEND Internal Medicine | DX: M54.59 Other low back pain (principal) ==

== ENCOUNTER → 2022-03-07 | Outpatient (CLI) | payer OTHER | LOC: M PLAIMG 09:01 | PROVIDERS: ATTEND Physician Assistant | DX: M54.59 Other low back pain (principal) ==

== ENCOUNTER → 2022-06-11 | Outpatient (CLI) | payer OTHER | LOC: M WUC 11:03 | PROVIDERS: ATTEND Nurse Practitioner Family | DX: S99.911A Unspecified injury of right ankle, initial encounter (principal); X58.XXXA Exposure to other specified factors, initial encounter ==

== ENCOUNTER → 2022-09-12 | Outpatient (CLI) | payer OTHER | LOC: M RAD 12:46 | PROVIDERS: ATTEND Family Medicine Addiction Medicine | DX: M50.322 Other cervical disc degeneration at C5-C6 level (principal); M25.552 Pain in left hip; M25.512 Pain in left shoulder ==

== ENCOUNTER 2022-11-17 13:16 | Emergency (ER) | payer OTHER ==
[~2022-11-17] VITALS: Ht 162.6 cm; Wt 77.2 kg
[~2022-11-17 13:16] MED LIST changes: +RALTEGRAVIR 400 MG TAB (ISENTRESS) PO SCH; +TRUVADA 200MG/300MG TABLET PO SCH
[2022-11-17] MEDS ORDERED: metroNIDAZOLE (FLAGYL) 500MG TABLET PO ONE (14:20)
[2022-11-17] MEDS ORDERED: AZITHROMYCIN 250MG TABLET PO ONE (14:20)
[2022-11-17] MEDS ORDERED: ULIPRISTAL ACETATE 30MG TAB (ELLA) PO ONE (14:20)
[2022-11-17] MEDS ORDERED: LIDOCAINE 1% SDV 5ML VIAL DILUENT ONE (14:20)
[2022-11-17] MEDS ORDERED: cefTRIAXone 500MG VIAL IM ONE (14:20)
[2022-11-17] MEDS ORDERED: EXPOSURE KIT-ADULT 7 DAY SUPPLY PO ONE (14:20)
[2022-11-17] MEDS: BOOSTRIX/ADACEL VACCINE (DIPHTH/PERTUSS/ACELL/TETANUS) 0.5ML SYR IM.IMMUN ONE ×2 (14:20→15:24)
[2022-11-17] MEDS ORDERED: HEPATITIS B VACCINE 20MCG/ML 1ML SYRINGE (ADULT DOSE) IM.IMMUN ONE (14:20)
[2022-11-17] MEDS ORDERED: RALTEGRAVIR 400 MG TAB (ISENTRESS) PO ONE (15:00)
[2022-11-17] MEDS ORDERED: TRUVADA 200MG/300MG TABLET PO ONE (15:00)
[2022-11-17 15:35] LABS: BASO # 0.1 10^3/uL (0.0-0.2); BASO % 1.1 % (0.0-1.0); EOS % 0.4 % (0.0-3.0); HEMATOCRIT 42.3 % (36.0-47.0); HEMOGLOBIN 13.9 g/dl (12.0-15.5); LYMPH # 1.9 10^3/uL (1.5-5.0); LYMPH % 20.1 % (24.0-44.0); MEAN CORPUSCULAR HEMOGLOBIN 30.6 pg (27.0-33.0); MEAN CORPUSCULAR HGB CONC 32.9 g/dl (32.0-36.5); MEAN CORPUSCULAR VOLUME 93.2 fl (80.0-96.0); MONO # 0.7 10^3/uL (0.0-0.8); MONO % 7.9 % (2.0-8.0); NEUTROPHILS # 6.5 10^3/uL (1.5-8.5); NEUTROPHILS % 70.2 % (36.0-66.0); PLATELET COUNT, AUTOMATED 254 10^3/uL (150-450); RED BLOOD COUNT 4.54 10^6/uL (4.00-5.40); WHITE BLOOD COUNT 9.3 10^3/uL (4.0-10.0)
[2022-11-17 16:14] LABS: ALBUMIN 4.3 G/DL (3.2-5.2); ALKALINE PHOSPHATASE 82 U/L (46-116); ALT/SGPT 16 U/L (7.0-40); AST/SGOT 20 U/L (<34); BILIRUBIN,TOTAL 0.4 MG/DL (0.3-1.2); BLOOD UREA NITROGEN 10 MG/DL (9-23); CALCIUM LEVEL 9.2 MG/DL (8.5-10.1); CARBON DIOXIDE LEVEL 23 MMOL/L (20-31); CHLORIDE LEVEL 110 MMOL/L (98-107); CREATININE FOR GFR 0.57 MG/DL (0.55-1.30); GLOMERULAR FILTRATION RATE > 60.0 (>60); GLUCOSE, FASTING 82 MG/DL (60-100); POTASSIUM SERUM 4.5 MMOL/L (3.5-5.1); SODIUM LEVEL 142 MMOL/L (136-145); TOTAL PROTEIN 7.4 G/DL (5.7-8.2)
[2022-11-17 16:16] LABS: HEPATITIS B SURFACE ANTIBODY POSITIVE (POSITIVE)
[2022-11-17 16:27] LABS: HEPATITIS B SURFACE ANTIGEN NEGATIVE (NEGATIVE)
[2022-11-17 16:41] LABS: HIV 1&2 SCREEN CENTAUR NEGATIVE (NEGATIVE)
[2022-11-17 16:49] LABS: HEPATITIS C VIRUS ABY INDEX < 0.0 INDEX (<0.8)
[2022-11-17] MEDS ORDERED: RALT40TA PO (18:54)
[2022-11-17] MEDS ORDERED: EMTR1TAB16 PO (18:54)
[2022-11-17 20:27] VITALS: BP 130/78
== END 2022-11-17 21:42 | disposition home or self-care (01) ==
LOC: EDBD 13:16 → M ED 13:16
DX: Z04.41 Encounter for examination and observation following alleged adult rape (principal); F12.10 Cannabis abuse, uncomplicated; F17.200 Nicotine dependence, unspecified, uncomplicated; Z88.0 Allergy status to penicillin; Z88.1 Allergy status to other antibiotic agents; Z88.5 Allergy status to narcotic agent; Z91.018 Allergy to other foods
CPT/HCPCS: 36415; 80053; 85025; 86706; 86780; 86803; 87340; 87389; 90715; 90746; 99284; J0696

== ENCOUNTER 2022-12-14 16:30 | Emergency (ER) | payer OTHER ==
[~2022-12-14] VITALS: Ht 162.6 cm; Wt 78.3 kg
[~2022-12-14 16:30] MED LIST changes: +ASPI-655 PO; -ASPI1CHW3 PO; +EMTR1TAB16 PO; +RALT40TA PO; -RALTEGRAVIR 400 MG TAB (ISENTRESS) PO SCH; -TRUVADA 200MG/300MG TABLET PO SCH
[2022-12-14] MEDS ORDERED: IBUPROFEN 800 MG TAB PO ONE (16:55)
[2022-12-14] MEDS ORDERED: IBUP80TA PO (18:29)
[2022-12-14 18:34] VITALS: BP 102/70
== END 2022-12-14 18:51 | disposition home or self-care (01) ==
LOC: M ED 16:30
DX: S63.601A Unspecified sprain of right thumb, initial encounter (principal); W22.8XXA Striking against or struck by other objects, initial encounter; Y92.410 Unspecified street and highway as the place of occurrence of the external cause; Y93.89 Activity, other specified; Y99.8 Other external cause status; F12.90 Cannabis use, unspecified, uncomplicated; Z88.0 Allergy status to penicillin; Z91.040 Latex allergy status; Z88.1 Allergy status to other antibiotic agents; Z91.018 Allergy to other foods

== ENCOUNTER 2022-12-31 18:38 | Emergency (ER) | payer OTHER ==
[~2022-12-31] VITALS: Ht 162.6 cm; Wt 77.0 kg
[~2022-12-31 18:38] MED LIST changes: +IBUP80TA PO
[2022-12-31 18:45] VITALS: BP 122/77
== END 2023-01-01 00:33 | disposition left against medical advice (07) ==
LOC: M ED 18:38
DX: Z53.21 Procedure and treatment not carried out due to patient leaving prior to being seen by health care provider (principal)

== ENCOUNTER 2023-01-01 02:54 | Emergency (ER) | payer OTHER ==
[~2023-01-01] VITALS: Ht 162.6 cm; Wt 79.0 kg
[2023-01-01 02:54] VITALS: BP 120/69
[2023-01-01 03:31] LABS: APPEARANCE, URINE HAZY (CLEAR); BACTERIA, URINE AUTO 1+ (NEGATIVE); BILIRUBIN, URINE AUTO NEGATIVE (NEGATIVE); BLOOD, URINE BLOOD NEGATIVE (NEGATIVE); COLOR, URINE YELLOW (YELLOW); GLUCOSE, URINE (UA) AUTO NEGATIVE (NEGATIVE); KETONE, URINE AUTO TRACE mg/dL (NEGATIVE); LEUKOCYTE ESTERASE, URINE AUTO NEGATIVE (NEGATIVE); MUCUS, URINE SMALL (NEGATIVE); NITRITE, URINE AUTO NEGATIVE (NEGATIVE); PROTEIN, URINE AUTO 2+ mg/dL (NEGATIVE); RBC, URINE AUTO 2 /HPF (0-3); SPECIFIC GRAVITY URINE AUTO 1.021 (1.002-1.035); SQUAMOUS EPITHELIAL CELL UR AU 0 /HPF (0-6); UROBILINOGEN, URINE AUTO 0.2 mg/dL (0.0-2.0); WBC, URINE AUTO 8 /HPF (0-3)
== END 2023-01-01 06:43 | disposition left against medical advice (07) ==
LOC: M ED 02:54
DX: Z53.21 Procedure and treatment not carried out due to patient leaving prior to being seen by health care provider (principal)

== ENCOUNTER → 2023-01-22 | Outpatient (CLI) | payer OTHER | LOC: M RAD 14:21 | PROVIDERS: ATTEND Physician Assistant | DX: M25.562 Pain in left knee (principal) ==

== ENCOUNTER 2023-02-01 22:29 | Emergency (ER) | payer OTHER ==
[~2023-02-01] VITALS: Ht 162.6 cm; Wt 77.3 kg
[2023-02-01 22:29] VITALS: BP 138/70; TEMP 99.8; O2SAT 100
[2023-02-01 23:19] LABS: APPEARANCE, URINE CLEAR (CLEAR); BACTERIA, URINE AUTO 1+ (NEGATIVE); BILIRUBIN, URINE AUTO NEGATIVE (NEGATIVE); BLOOD, URINE BLOOD NEGATIVE (NEGATIVE); COLOR, URINE YELLOW (YELLOW); GLUCOSE, URINE (UA) AUTO NEGATIVE (NEGATIVE); KETONE, URINE AUTO NEGATIVE (NEGATIVE); LEUKOCYTE ESTERASE, URINE AUTO NEGATIVE (NEGATIVE); MUCUS, URINE SMALL (NEGATIVE); NITRITE, URINE AUTO NEGATIVE (NEGATIVE); PROTEIN, URINE AUTO NEGATIVE (NEGATIVE); RBC, URINE AUTO 2 /HPF (0-3); SPECIFIC GRAVITY URINE AUTO 1.009 (1.002-1.035); SQUAMOUS EPITHELIAL CELL UR AU 1 /HPF (0-6); UROBILINOGEN, URINE AUTO 0.2 mg/dL (0.0-2.0); WBC, URINE AUTO 2 /HPF (0-3)
[2023-02-01 23:49] LABS: BARBITURATES URINE NEGATIVE (NEGATIVE); BENZODIAZEPINES URINE NEGATIVE (NEGATIVE); COCAINE METABOLITE URINE NEGATIVE (NEGATIVE); METHADONE URINE NEGATIVE (NEGATIVE); OPIATES URINE NEGATIVE (NEGATIVE)
[2023-02-01 23:50] LABS: PHENCYCLIDINE URINE NEGATIVE (NEGATIVE)
[2023-02-01 23:53] LABS: AMPHETAMINES LEVEL URINE POSITIVE (NEGATIVE); CANNABINOIDS URINE POSITIVE (NEGATIVE)
== END 2023-02-02 03:35 | disposition left against medical advice (07) ==
LOC: M ED 22:29
DX: Z53.21 Procedure and treatment not carried out due to patient leaving prior to being seen by health care provider (principal)

== ENCOUNTER 2023-02-06 17:40 | Inpatient (IN) | payer MEDICAID, OTHER ==
[~2023-02-06] VITALS: Ht 162.6 cm; Wt 74.8 kg
[2023-02-06 18:29] LABS: HEMATOCRIT 40.7 % (36.0-47.0); HEMOGLOBIN 13.3 g/dl (12.0-15.5); MEAN CORPUSCULAR HEMOGLOBIN 30.9 pg (27.0-33.0); MEAN CORPUSCULAR HGB CONC 32.7 g/dl (32.0-36.5); MEAN CORPUSCULAR VOLUME 94.7 fl (80.0-96.0); PLATELET COUNT, AUTOMATED 247 10^3/uL (150-450); WHITE BLOOD COUNT 8.3 10^3/uL (4.0-10.0)
[2023-02-06 18:40] LABS: ETHYL ALCOHOL (ETHANOL) < 0.003 % (0.000-0.010)
[2023-02-06 18:42] LABS: SALICYLATE LEVEL 5.1 MG/DL (<30)
[2023-02-06 18:43] LABS: ACETAMINOPHEN LEVEL < 2.0 UG/ML (10.0-20.0); ALBUMIN 4.3 G/DL (3.2-5.2); ALKALINE PHOSPHATASE 76 U/L (46-116); ALT/SGPT 15 U/L (7.0-40); AST/SGOT 13 U/L (<34); BILIRUBIN,DIRECT 0.1 MG/DL (<0.4); BILIRUBIN,TOTAL 0.4 MG/DL (0.3-1.2); BLOOD UREA NITROGEN 13 MG/DL (9-23); CALCIUM LEVEL 8.9 MG/DL (8.5-10.1); CARBON DIOXIDE LEVEL 26 MMOL/L (20-31); CHLORIDE LEVEL 105 MMOL/L (98-107); CREATININE FOR GFR 0.74 MG/DL (0.55-1.30); GLOMERULAR FILTRATION RATE > 60.0 (>60); GLUCOSE, FASTING 90 MG/DL (60-100); POTASSIUM SERUM 3.7 MMOL/L (3.5-5.1); SODIUM LEVEL 139 MMOL/L (136-145); THYROID STIMULATING HORMONE 0.978 uIU/ML (0.55-4.78); TOTAL PROTEIN 7.2 G/DL (5.7-8.2)
[2023-02-06 18:49] LABS: AMPHETAMINES LEVEL URINE NEGATIVE (NEGATIVE); BENZODIAZEPINES URINE NEGATIVE (NEGATIVE)
[2023-02-06 18:50] LABS: BARBITURATES URINE NEGATIVE (NEGATIVE); CANNABINOIDS URINE POSITIVE (NEGATIVE); COCAINE METABOLITE URINE NEGATIVE (NEGATIVE); METHADONE URINE NEGATIVE (NEGATIVE); OPIATES URINE NEGATIVE (NEGATIVE); PHENCYCLIDINE URINE NEGATIVE (NEGATIVE)
[2023-02-06 19:13] LABS: URINE PREG TEST NEGATIVE (NEGATIVE)
[2023-02-06] MEDS ORDERED: CALCIUM CARBONATE 500 MG CHEW U/D PO ONE (20:25)
[2023-02-06] MEDS ORDERED: HOME MED LIST COMPLETE! XX SCH (21:55)
[2023-02-06] MEDS ORDERED: diphenhydrAMINE 25MG CAP PO PRN (22:50)
[2023-02-06] MEDS ORDERED: MOM 30ML SUSPENSION UDC PO PRN (22:50)
[2023-02-06] MEDS ORDERED: traZODone 50 MG TAB PO PRN (22:50)
[2023-02-06] MEDS ORDERED: MAALOX 30 ML SUSP *UDC PO PRN (22:50)
[2023-02-06 23:51] VITALS: BP 117/62; TEMP 97.1; O2SAT 98
[2023-02-07] MEDS: IBUPROFEN 400MG TAB PO PRN ×2 (00:01→09:26)
[2023-02-07] MEDS: ACETAMINOPHEN TAB 650MG DOSE (2X325MG) PO PRN ×2 (04:22→12:04)
[2023-02-07 06:10] VITALS: BP 119/67; TEMP 97.6; O2SAT 99
[2023-02-07] MEDS ORDERED: OLANZapine ORAL DISINTEGRATING TAB 5MG PO PRN (11:10)
[2023-02-07] MEDS: OLANZapine 5 MG TAB PO SCH ×2 (12:00→21:40)
[2023-02-07 18:00] VITALS: BP 132/65; TEMP 96.7
[2023-02-07] MEDS: VALPROIC ACID 250MG CAP PO SCH (21:00)
[2023-02-08 07:12] VITALS: BP 109/58; TEMP 97; O2SAT 100
[2023-02-08 07:48] LABS: CHOLESTEROL RISK RATIO 3.35 (<5); HDL CHOLESTEROL 54.6 MG/DL (>40); LDL CHOLESTEROL 110.2 MG/DL (<100); NON-HDL-C 128.4 MG/DL
[2023-02-08] MEDS: OLANZapine 5 MG TAB PO SCH ×2 (09:42→20:22)
[2023-02-08] MEDS: IBUPROFEN 400MG TAB PO PRN (09:42)
[2023-02-08] MEDS: VALPROIC ACID 250MG CAP PO SCH ×2 (09:44→20:22)
[2023-02-08] MEDS: LIDOCAINE 5% (LIDODERM) PATCH TD SCH (11:02)
[2023-02-08 16:00] VITALS: BP 126/68; TEMP 98.1; O2SAT 97
[2023-02-09 07:02] VITALS: BP 115/63; TEMP 97.6; O2SAT 99
[2023-02-09] MEDS: OLANZapine 5 MG TAB PO SCH ×2 (09:02→20:37)
[2023-02-09] MEDS: VALPROIC ACID 250MG CAP PO SCH ×2 (09:02→20:37)
[2023-02-09] MEDS: LIDOCAINE 5% (LIDODERM) PATCH TD SCH (09:50)
[2023-02-09 17:04] VITALS: BP 111/60; TEMP 98; O2SAT 98
[2023-02-10 06:47] VITALS: BP 107/57; TEMP 98.1; O2SAT 97
[2023-02-10] MEDS: OLANZapine 5 MG TAB PO SCH (08:30)
[2023-02-10] MEDS: VALPROIC ACID 250MG CAP PO SCH ×2 (08:31→21:03)
[2023-02-10] MEDS: IBUPROFEN 400MG TAB PO PRN (08:32)
[2023-02-10] MEDS: LIDOCAINE 5% (LIDODERM) PATCH TD SCH (08:32)
[2023-02-10 18:00] VITALS: BP 125/82; TEMP 97.2
[2023-02-10] MEDS: PALIPERIDONE 3MG ER TAB (INVEGA) PO SCH (21:03)
[2023-02-11 06:02] VITALS: BP 116/63; TEMP 97.8; O2SAT 98
[2023-02-11] MEDS: VALPROIC ACID 250MG CAP PO SCH ×2 (07:48→21:41)
[2023-02-11] MEDS: PALIPERIDONE 3MG ER TAB (INVEGA) PO SCH ×2 (07:48→21:41)
[2023-02-11] MEDS: LIDOCAINE 5% (LIDODERM) PATCH TD SCH (07:50)
[2023-02-11 18:00] VITALS: BP 132/62; TEMP 97.6
[2023-02-12 06:14] VITALS: BP 109/52; TEMP 96.3; O2SAT 96
[2023-02-12] MEDS: PALIPERIDONE 3MG ER TAB (INVEGA) PO SCH (08:36)
[2023-02-12] MEDS: VALPROIC ACID 250MG CAP PO SCH (08:36)
[2023-02-12] MEDS: LIDOCAINE 5% (LIDODERM) PATCH TD SCH (08:36)
[2023-02-12] MEDS ORDERED: VALP1CAP2 PO (10:08)
[2023-02-12] MEDS ORDERED: PALI1TAB2 PO (10:08)
== END 2023-02-12 11:29 | disposition home or self-care (01) | DRG 753 ==
LOC: M ED 17:40 → M ED INP 22:47 → M PSY 23:38
PROVIDERS: ADMIT Student in an Organized Health Care Education/Training Program; ATTEND Student in an Organized Health Care Education/Training Program
DX: F31.9 Bipolar disorder, unspecified (principal); F12.10 Cannabis abuse, uncomplicated; Z91.51 Personal history of suicidal behavior; Z88.0 Allergy status to penicillin; Z88.1 Allergy status to other antibiotic agents; Z88.5 Allergy status to narcotic agent; Z91.018 Allergy to other foods; Z91.040 Latex allergy status; M79.642 Pain in left hand; M25.512 Pain in left shoulder

== ENCOUNTER 2023-03-13 20:11 | Emergency (ER) | payer MEDICAID, OTHER ==
[~2023-03-13] VITALS: Ht 162.6 cm; Wt 77.5 kg
[~2023-03-13 20:11] MED LIST changes: +PALI1TAB2 PO; +VALP1CAP2 PO
[2023-03-13 20:30] VITALS: BP 136/74; TEMP 97.7; O2SAT 100
== END 2023-03-13 22:21 | disposition left against medical advice (07) ==
LOC: M ED 20:11
DX: Z53.21 Procedure and treatment not carried out due to patient leaving prior to being seen by health care provider (principal)

== ENCOUNTER 2023-03-15 10:41 | Emergency (ER) | payer OTHER ==
[2023-03-15 13:48] LABS: HEMATOCRIT 40.4 % (36.0-47.0); HEMOGLOBIN 13.1 g/dl (12.0-15.5); MEAN CORPUSCULAR HEMOGLOBIN 30.5 pg (27.0-33.0); MEAN CORPUSCULAR HGB CONC 32.4 g/dl (32.0-36.5); MEAN CORPUSCULAR VOLUME 94.2 fl (80.0-96.0); PLATELET COUNT, AUTOMATED 240 10^3/uL (150-450); RED BLOOD COUNT 4.29 10^6/uL (4.00-5.40); WHITE BLOOD COUNT 8.3 10^3/uL (4.0-10.0)
[2023-03-15 13:54] LABS: ERYTHROCYTE SEDIMENTATION RATE 16 mm/hr (0-20)
[2023-03-15 14:16] LABS: AMPHETAMINES LEVEL URINE NEGATIVE (NEGATIVE)
[2023-03-15 14:17] LABS: BARBITURATES URINE NEGATIVE (NEGATIVE); BENZODIAZEPINES URINE NEGATIVE (NEGATIVE); METHADONE URINE NEGATIVE (NEGATIVE); OPIATES URINE NEGATIVE (NEGATIVE); PHENCYCLIDINE URINE NEGATIVE (NEGATIVE)
[2023-03-15 14:18] LABS: ETHYL ALCOHOL (ETHANOL) < 0.003 % (0.000-0.010)
[2023-03-15 14:19] LABS: CANNABINOIDS URINE POSITIVE (NEGATIVE); COCAINE METABOLITE URINE POSITIVE (NEGATIVE)
[2023-03-15 14:20] LABS: SALICYLATE LEVEL < 3.0 MG/DL (<30)
[2023-03-15 14:21] LABS: ACETAMINOPHEN LEVEL < 2.0 UG/ML (10.0-20.0); ALKALINE PHOSPHATASE 80 U/L (46-116); ALT/SGPT 12 U/L (7.0-40); AST/SGOT 12 U/L (<34); BILIRUBIN,DIRECT 0.2 MG/DL (<0.4); BILIRUBIN,TOTAL 0.6 MG/DL (0.3-1.2); BLOOD UREA NITROGEN 11 MG/DL (9-23); CALCIUM LEVEL 9.5 MG/DL (8.5-10.1); CARBON DIOXIDE LEVEL 25 MMOL/L (20-31); CHLORIDE LEVEL 105 MMOL/L (98-107); GLOMERULAR FILTRATION RATE > 60.0 (>60); GLUCOSE, FASTING 92 MG/DL (60-100); POTASSIUM SERUM 4.4 MMOL/L (3.5-5.1); SODIUM LEVEL 140 MMOL/L (136-145); THYROID STIMULATING HORMONE 0.667 uIU/ML (0.55-4.78)
[2023-03-15] MEDS ORDERED: MACR100C43 PO (14:29)
[2023-03-15 14:40] VITALS: BP 126/78; TEMP 97; O2SAT 99
== END 2023-03-15 14:48 | disposition home or self-care (01) ==
LOC: M ED 10:41 → EDBD 10:41 → M ED 14:48
DX: F19.10 Other psychoactive substance abuse, uncomplicated (principal); N39.0 Urinary tract infection, site not specified; F32.A Depression, unspecified; F41.9 Anxiety disorder, unspecified; Z88.0 Allergy status to penicillin; Z88.5 Allergy status to narcotic agent; Z91.040 Latex allergy status; Z79.899 Other long term (current) drug therapy; F17.290 Nicotine dependence, other tobacco product, uncomplicated

== ENCOUNTER 2023-03-21 10:37 | Emergency (ER) | payer OTHER ==
[~2023-03-21 10:37] MED LIST changes: +MACR100C43 PO
== END 2023-03-21 10:46 | disposition left against medical advice (07) ==
LOC: M ED 10:37
DX: Z53.21 Procedure and treatment not carried out due to patient leaving prior to being seen by health care provider (principal)

== ENCOUNTER 2023-04-15 00:44 | Inpatient (IN) | payer MEDICAID, OTHER ==
[~2023-04-15] VITALS: Ht 165.1 cm; Wt 77.3 kg
[2023-04-15] MEDS ORDERED: VALP1CAP2 PO (02:24)
[2023-04-15] MEDS ORDERED: PALI1TAB2 PO (02:24)
[2023-04-15] MEDS ORDERED: HOME MED LIST COMPLETE! XX SCH (02:30)
[2023-04-15 03:22] LABS: HEMOGLOBIN 12.7 g/dl (12.0-15.5); MEAN CORPUSCULAR HEMOGLOBIN 30.6 pg (27.0-33.0); MEAN CORPUSCULAR HGB CONC 32.6 g/dl (32.0-36.5); PLATELET COUNT, AUTOMATED 236 10^3/uL (150-450); RED BLOOD COUNT 4.15 10^6/uL (4.00-5.40); WHITE BLOOD COUNT 11.3 10^3/uL (4.0-10.0)
[2023-04-15 03:40] LABS: AMPHETAMINES LEVEL URINE NEGATIVE (NEGATIVE); BARBITURATES URINE NEGATIVE (NEGATIVE); BENZODIAZEPINES URINE NEGATIVE (NEGATIVE); COCAINE METABOLITE URINE NEGATIVE (NEGATIVE); METHADONE URINE NEGATIVE (NEGATIVE); OPIATES URINE NEGATIVE (NEGATIVE); PHENCYCLIDINE URINE NEGATIVE (NEGATIVE)
[2023-04-15 03:41] LABS: CANNABINOIDS URINE POSITIVE (NEGATIVE); HCG, SERUM QUALITATIVE NEGATIVE (NEGATIVE)
[2023-04-15 03:42] LABS: ETHYL ALCOHOL (ETHANOL) < 0.003 % (0.000-0.010)
[2023-04-15 03:44] LABS: ACETAMINOPHEN LEVEL < 2.0 UG/ML (10.0-20.0); SALICYLATE LEVEL < 3.0 MG/DL (<30)
[2023-04-15 03:48] LABS: ALBUMIN 3.8 G/DL (3.2-5.2); ALKALINE PHOSPHATASE 92 U/L (46-116); ALT/SGPT 10 U/L (7.0-40); AST/SGOT < 8 U/L (<34); BILIRUBIN,DIRECT < 0.1 MG/DL (<0.4); BILIRUBIN,TOTAL 0.3 MG/DL (0.3-1.2); BLOOD UREA NITROGEN 16 MG/DL (9-23); CALCIUM LEVEL 9.2 MG/DL (8.5-10.1); CARBON DIOXIDE LEVEL 31 MMOL/L (20-31); CHLORIDE LEVEL 103 MMOL/L (98-107); CREATININE FOR GFR 0.79 MG/DL (0.55-1.30); GLOMERULAR FILTRATION RATE > 60.0 (>60); GLUCOSE, FASTING 81 MG/DL (60-100); POTASSIUM SERUM 4.5 MMOL/L (3.5-5.1); SODIUM LEVEL 139 MMOL/L (136-145); THYROID STIMULATING HORMONE 0.745 uIU/ML (0.55-4.78); TOTAL PROTEIN 6.9 G/DL (5.7-8.2)
[2023-04-15] MEDS ORDERED: ACETAMINOPHEN TAB 650MG DOSE (2X325MG) PO ONE (11:35)
[2023-04-15] MEDS ORDERED: diphenhydrAMINE 25MG CAP PO PRN (12:35)
[2023-04-15] MEDS ORDERED: traZODone 50 MG TAB PO PRN (12:35)
[2023-04-15] MEDS ORDERED: ACETAMINOPHEN TAB 650MG DOSE (2X325MG) PO PRN (12:35)
[2023-04-15] MEDS ORDERED: IBUPROFEN 400MG TAB PO PRN (12:35)
[2023-04-15] MEDS ORDERED: MAALOX 30 ML SUSP *UDC PO PRN (12:35)
[2023-04-15] MEDS ORDERED: MOM 30ML SUSPENSION UDC PO PRN (12:35)
[2023-04-15] MEDS ORDERED: MAGNESIUM CITRATE 300ML BTL PO ONE (14:00)
[2023-04-15] MEDS: DIVALPROEX 500 MG TAB PO SCH (14:14)
[2023-04-15] MEDS: OLANZapine 5 MG TAB PO SCH (14:14)
[2023-04-15 15:40] VITALS: BP 110/61; TEMP 97.1; O2SAT 100
[2023-04-16 06:17] VITALS: BP 103/51; TEMP 98; O2SAT 98
[2023-04-16] MEDS: DIVALPROEX 500 MG TAB PO SCH (09:30)
[2023-04-16] MEDS: OLANZapine 5 MG TAB PO SCH (09:30)
[2023-04-16 16:28] VITALS: BP 110/64; TEMP 97.2; O2SAT 98
[2023-04-17 06:06] VITALS: BP 92/50; TEMP 98; O2SAT 99
[2023-04-17] MEDS: OLANZapine 5 MG TAB PO SCH (14:54)
[2023-04-17] MEDS: DIVALPROEX 500 MG TAB PO SCH (14:54)
[2023-04-17 17:51] VITALS: BP 125/68; TEMP 96.8; O2SAT 98
[2023-04-18 06:23] VITALS: BP 112/58; TEMP 97.5; O2SAT 99
[2023-04-18] MEDS: DIVALPROEX 500 MG TAB PO SCH (09:00)
[2023-04-18] MEDS: OLANZapine 5 MG TAB PO SCH (09:00)
[2023-04-18 18:53] VITALS: BP 134/73; TEMP 97.2
[2023-04-19 06:51] VITALS: BP 115/53; TEMP 97.2; O2SAT 98
[2023-04-19] MEDS: OLANZapine 5 MG TAB PO SCH (08:02)
[2023-04-19] MEDS: DIVALPROEX 500 MG TAB PO SCH (08:02)
[2023-04-19 18:06] VITALS: BP 107/57; TEMP 98.6; O2SAT 97
[2023-04-20 06:36] VITALS: BP 117/63; TEMP 97.5; O2SAT 96
[2023-04-20] MEDS: DIVALPROEX 500 MG TAB PO SCH (08:12)
[2023-04-20] MEDS: OLANZapine 5 MG TAB PO SCH (08:12)
[2023-04-20 18:40] VITALS: BP 118/57; TEMP 98; O2SAT 95
[2023-04-21 06:38] VITALS: BP 118/91; TEMP 96.9; O2SAT 97
[2023-04-21] MEDS: OLANZapine 5 MG TAB PO SCH (08:09)
[2023-04-21] MEDS: DIVALPROEX 500 MG TAB PO SCH (08:09)
[2023-04-21 17:10] VITALS: BP 102/74; TEMP 97.3
[2023-04-22 06:41] VITALS: BP 149/74; TEMP 97; O2SAT 98
[2023-04-22] MEDS ORDERED: OLAN1TAB16 PO (07:50)
[2023-04-22] MEDS ORDERED: DEPA1TAB3 PO (07:50)
[2023-04-22] MEDS: DIVALPROEX 500 MG TAB PO SCH (08:10)
[2023-04-22] MEDS: OLANZapine 5 MG TAB PO SCH (08:10)
== END 2023-04-22 12:16 | disposition home or self-care (01) | DRG 753 ==
LOC: M ED 00:44 → M ED INP 12:35 → M PSY 15:30
PROVIDERS: ADMIT Psychiatry & Neurology Child & Adolescent Psychiatry; ATTEND Student in an Organized Health Care Education/Training Program
DX: F31.9 Bipolar disorder, unspecified (principal); F12.10 Cannabis abuse, uncomplicated; F43.10 Post-traumatic stress disorder, unspecified; F17.210 Nicotine dependence, cigarettes, uncomplicated; R10.9 Unspecified abdominal pain; Z59.00 Homelessness unspecified; Z56.0 Unemployment, unspecified; Z79.899 Other long term (current) drug therapy; Z20.822 Contact with and (suspected) exposure to COVID-19; Z88.0 Allergy status to penicillin; Z88.1 Allergy status to other antibiotic agents; Z88.5 Allergy status to narcotic agent; Z91.040 Latex allergy status; Z91.018 Allergy to other foods; Z85.42 Personal history of malignant neoplasm of other parts of uterus; Z90.79 Acquired absence of other genital organ(s); Z62.810 Personal history of physical and sexual abuse in childhood; Z62.811 Personal history of psychological abuse in childhood

== ENCOUNTER 2023-05-24 18:54 | Inpatient (IN) | payer MEDICAID ==
[~2023-05-24] VITALS: Ht 162.6 cm; Wt 77.3 kg
[~2023-05-24 18:54] MED LIST changes: +DEPA1TAB3 PO; +OLAN1TAB16 PO
[2023-05-24 19:30] LABS: HEMOGLOBIN 14.1 g/dl (12.0-15.5); MEAN CORPUSCULAR HEMOGLOBIN 30.3 pg (27.0-33.0); MEAN CORPUSCULAR HGB CONC 33.6 g/dl (32.0-36.5); MEAN CORPUSCULAR VOLUME 90.3 fl (80.0-96.0); PLATELET COUNT, AUTOMATED 156 10^3/uL (150-450); RED BLOOD COUNT 4.65 10^6/uL (4.00-5.40); WHITE BLOOD COUNT 4.9 10^3/uL (4.0-10.0)
[2023-05-24 19:50] LABS: AMPHETAMINES LEVEL URINE NEGATIVE (NEGATIVE); BARBITURATES URINE NEGATIVE (NEGATIVE); BENZODIAZEPINES URINE NEGATIVE (NEGATIVE); COCAINE METABOLITE URINE NEGATIVE (NEGATIVE); METHADONE URINE NEGATIVE (NEGATIVE); OPIATES URINE NEGATIVE (NEGATIVE); PHENCYCLIDINE URINE NEGATIVE (NEGATIVE)
[2023-05-24 19:51] LABS: CANNABINOIDS URINE POSITIVE (NEGATIVE)
[2023-05-24 19:52] LABS: ETHYL ALCOHOL (ETHANOL) < 0.003 % (0.000-0.010)
[2023-05-24 19:54] LABS: ALBUMIN 4.2 G/DL (3.2-5.2); ALKALINE PHOSPHATASE 67 U/L (46-116); ALT/SGPT 13 U/L (7.0-40); AST/SGOT 15 U/L (<34); BILIRUBIN,DIRECT 0.2 MG/DL (<0.4); BILIRUBIN,TOTAL 0.5 MG/DL (0.3-1.2); BLOOD UREA NITROGEN 13 MG/DL (9-23); CALCIUM LEVEL 9.3 MG/DL (8.5-10.1); CARBON DIOXIDE LEVEL 26 MMOL/L (20-31); CHLORIDE LEVEL 107 MMOL/L (98-107); CREATININE FOR GFR 0.72 MG/DL (0.55-1.30); GLOMERULAR FILTRATION RATE > 60.0 (>60); GLUCOSE, FASTING 159 MG/DL (60-100); POTASSIUM SERUM 3.6 MMOL/L (3.5-5.1); SALICYLATE LEVEL < 3.0 MG/DL (<30); SODIUM LEVEL 143 MMOL/L (136-145); TOTAL PROTEIN 7.6 G/DL (5.7-8.2)
[2023-05-24 19:56] LABS: THYROID STIMULATING HORMONE 1.749 uIU/ML (0.55-4.78)
[2023-05-24] MEDS ORDERED: INVE3TAB2 PO (20:29)
[2023-05-24] MEDS ORDERED: PANT20TA51 PO (20:29)
[2023-05-24] MEDS ORDERED: HOME MED LIST COMPLETE! XX SCH (20:30)
[2023-05-27] MEDS ORDERED: PALIPERIDONE 3MG ER TAB (INVEGA) PO SCH (09:00)
[2023-05-27] MEDS ORDERED: PANTOPRAZOLE 20 MG TAB PO SCH (09:00)
[2023-05-27] MEDS ORDERED: OLANZapine ORAL DISINTEGRATING TAB 5MG PO PRN (14:20)
[2023-05-28 06:38] VITALS: BP 107/54; TEMP 97.3; O2SAT 98
[2023-05-28] MEDS: PALIPERIDONE 3MG ER TAB (INVEGA) PO SCH ×2 (09:46→20:44)
[2023-05-28 16:12] VITALS: BP 114/70; TEMP 98; O2SAT 98
[2023-05-29 06:44] VITALS: BP 101/56; TEMP 98.5; O2SAT 98
[2023-05-29] MEDS: PALIPERIDONE 3MG ER TAB (INVEGA) PO SCH ×2 (09:41→20:58)
[2023-05-29] MEDS ORDERED: PALIPERIDONE PAL 234MG/1.5ML INJ (INVEGA)(FREE PSY INPT ONLY) IM ONE ×3 (14:00→16:00)
[2023-05-29 18:34] VITALS: BP_SYST 100; BP_SYST 99; BP_DIAS 57; BP_DIAS 62; TEMP 99.5; O2SAT 98
[2023-05-30 06:32] VITALS: BP 102/57; TEMP 98.6; O2SAT 96
[2023-05-30] MEDS: PALIPERIDONE 3MG ER TAB (INVEGA) PO SCH ×2 (09:40→21:58)
[2023-05-30] MEDS: LITHIUM CARBONATE 150 MG CAP PO SCH ×2 (10:29→21:58)
[2023-05-30 16:29] VITALS: BP 109/69; TEMP 98.3; O2SAT 94
[2023-05-31 06:39] VITALS: BP 112/59; TEMP 97.4; O2SAT 97
[2023-05-31 07:19] LABS: CHOLESTEROL RISK RATIO 3.37 (<5); HDL CHOLESTEROL 49.8 MG/DL (>40); LDL CHOLESTEROL 96.2 MG/DL (<100); NON-HDL-C 118.2 MG/DL
[2023-05-31] MEDS: LITHIUM CARBONATE 150 MG CAP PO SCH ×2 (09:00→21:00)
[2023-05-31] MEDS: PALIPERIDONE 3MG ER TAB (INVEGA) PO SCH ×2 (09:35→21:23)
[2023-05-31] MEDS: MAALOX 30 ML SUSP *UDC PO PRN (15:48)
[2023-05-31 16:11] VITALS: BP 110/65; TEMP 97.9; O2SAT 96
[2023-06-01 06:33] VITALS: BP 112/55; TEMP 97.7; O2SAT 98
[2023-06-01] MEDS ORDERED: PALIPERIDONE PAL 156MG/1ML INJ(INVEGA)(FREE PSY INPT ONLY) IM ONE (09:00)
[2023-06-01] MEDS: LITHIUM CARBONATE 150 MG CAP PO SCH ×2 (09:00→21:00)
[2023-06-01] MEDS: PALIPERIDONE 3MG ER TAB (INVEGA) PO SCH ×2 (09:43→21:47)
[2023-06-01 15:28] VITALS: BP 114/70; TEMP 98.7; O2SAT 96
[2023-06-02 06:23] VITALS: BP 111/73; TEMP 97.9; O2SAT 95
[2023-06-02] MEDS: LITHIUM CARBONATE 150 MG CAP PO SCH ×2 (09:00→21:02)
[2023-06-02] MEDS: PALIPERIDONE 3MG ER TAB (INVEGA) PO SCH ×2 (09:08→21:02)
[2023-06-02] MEDS: MOM 30ML SUSPENSION UDC PO PRN (09:12)
[2023-06-02 18:18] VITALS: BP 96/55; TEMP 98.6; O2SAT 96
[2023-06-03 06:30] VITALS: BP 110/57; TEMP 98.5; O2SAT 100
[2023-06-03] MEDS: PALIPERIDONE 3MG ER TAB (INVEGA) PO SCH ×2 (09:23→21:37)
[2023-06-03] MEDS ORDERED: TUBERCULIN PPD 5 UNITS/0.1 ML ID ONE (10:00)
[2023-06-03 18:41] VITALS: TEMP 98; O2SAT 97
[2023-06-03] MEDS: LITHIUM CARBONATE 150 MG CAP PO SCH (21:37)
[2023-06-04 06:25] VITALS: BP 93/58; TEMP 97.4; O2SAT 97
[2023-06-04] MEDS: PALIPERIDONE 3MG ER TAB (INVEGA) PO SCH ×2 (08:34→20:05)
[2023-06-04] MEDS: BENZTROPINE 1 MG TAB PO SCH ×2 (10:58→20:05)
[2023-06-04 15:54] VITALS: BP 137/67; TEMP 97.5; O2SAT 97
[2023-06-04] MEDS: LITHIUM CARBONATE 150 MG CAP PO SCH (20:05)
[2023-06-05 06:35] VITALS: BP 98/53; TEMP 97.4; O2SAT 99
[2023-06-05] MEDS: PALIPERIDONE 3MG ER TAB (INVEGA) PO SCH ×2 (08:13→20:46)
[2023-06-05] MEDS: BENZTROPINE 1 MG TAB PO SCH ×2 (08:13→20:46)
[2023-06-05] MEDS: ACETAMINOPHEN TAB 650MG DOSE (2X325MG) PO PRN (08:14)
[2023-06-05] MEDS ORDERED: PPD DOCUMENTATION ENTRY MISC XX SCH (10:00)
[2023-06-05] MEDS: LIDOCAINE 5% (LIDODERM) PATCH TD SCH (12:57)
[2023-06-05] MEDS ORDERED: TUBERCULIN PPD 5 UNITS/0.1 ML ID ONE (15:00)
[2023-06-05 18:16] VITALS: BP 107/63; TEMP 97.1; O2SAT 99
[2023-06-05] MEDS: LITHIUM CARBONATE 150 MG CAP PO SCH (20:46)
[2023-06-06 06:29] VITALS: BP 112/65; TEMP 98.9; O2SAT 94
[2023-06-06] MEDS: LIDOCAINE 5% (LIDODERM) PATCH TD SCH (08:26)
[2023-06-06] MEDS: BENZTROPINE 1 MG TAB PO SCH ×2 (08:26→20:01)
[2023-06-06] MEDS: PALIPERIDONE 3MG ER TAB (INVEGA) PO SCH ×2 (08:26→20:01)
[2023-06-06 16:19] VITALS: BP 102/59; TEMP 98.1; O2SAT 64
[2023-06-06] MEDS: LITHIUM CARBONATE 150 MG CAP PO SCH (20:01)
[2023-06-07 06:26] VITALS: BP 90/52; TEMP 98.4; O2SAT 96
[2023-06-07] MEDS: BENZTROPINE 1 MG TAB PO SCH ×2 (08:19→22:06)
[2023-06-07] MEDS: PALIPERIDONE 3MG ER TAB (INVEGA) PO SCH ×2 (08:19→22:07)
[2023-06-07] MEDS: LIDOCAINE 5% (LIDODERM) PATCH TD SCH (08:20)
[2023-06-07] MEDS ORDERED: PPD DOCUMENTATION ENTRY MISC XX SCH (15:00)
[2023-06-07 17:38] VITALS: BP 126/75; TEMP 97.7; O2SAT 98
[2023-06-07] MEDS: LITHIUM CARBONATE 150 MG CAP PO SCH (22:07)
[2023-06-07] MEDS: ACETAMINOPHEN TAB 650MG DOSE (2X325MG) PO PRN (22:08)
[2023-06-08 07:20] VITALS: BP 91/53; TEMP 98.6; O2SAT 95
[2023-06-08] MEDS: PALIPERIDONE 3MG ER TAB (INVEGA) PO SCH ×2 (08:15→20:36)
[2023-06-08] MEDS: BENZTROPINE 1 MG TAB PO SCH ×2 (08:15→20:36)
[2023-06-08] MEDS: LIDOCAINE 5% (LIDODERM) PATCH TD SCH (08:15)
[2023-06-08] MEDS: ACETAMINOPHEN TAB 650MG DOSE (2X325MG) PO PRN (16:00)
[2023-06-08 18:18] VITALS: BP 113/72; TEMP 98; O2SAT 98
[2023-06-08] MEDS: LITHIUM CARBONATE 150 MG CAP PO SCH (20:36)
[2023-06-09 06:00] VITALS: BP 99/55; TEMP 97.7; O2SAT 95
[2023-06-09 08:25] VITALS: BP 99/55; TEMP 97.7; O2SAT 95
[2023-06-09] MEDS: BENZTROPINE 1 MG TAB PO SCH ×2 (08:59→21:20)
[2023-06-09] MEDS: LIDOCAINE 5% (LIDODERM) PATCH TD SCH (08:59)
[2023-06-09] MEDS: PALIPERIDONE 3MG ER TAB (INVEGA) PO SCH (08:59)
[2023-06-09 15:56] VITALS: BP 128/62; TEMP 99
[2023-06-09] MEDS: traZODone 50 MG TAB PO PRN (21:20)
[2023-06-09] MEDS: LITHIUM CARBONATE 150 MG CAP PO SCH (21:21)
[2023-06-10 06:39] VITALS: BP 97/52; TEMP 97.5; O2SAT 97
[2023-06-10] MEDS: PALIPERIDONE 3MG ER TAB (INVEGA) PO SCH (08:25)
[2023-06-10] MEDS: LIDOCAINE 5% (LIDODERM) PATCH TD SCH (08:26)
[2023-06-10] MEDS: BENZTROPINE 1 MG TAB PO SCH ×2 (08:26→20:48)
[2023-06-10 16:18] VITALS: BP 115/58; TEMP 97.9; O2SAT 98
[2023-06-10] MEDS: LITHIUM CARBONATE 150 MG CAP PO SCH (20:48)
[2023-06-10] MEDS: traZODone 50 MG TAB PO PRN (20:48)
[2023-06-11 06:29] VITALS: BP 96/55; TEMP 97.3; O2SAT 100
[2023-06-11] MEDS: LIDOCAINE 5% (LIDODERM) PATCH TD SCH (08:17)
[2023-06-11] MEDS: BENZTROPINE 1 MG TAB PO SCH (08:17)
[2023-06-11] MEDS: PALIPERIDONE 3MG ER TAB (INVEGA) PO SCH (08:17)
[2023-06-11] MEDS ORDERED: BENZTROPINE 1 MG TAB PO PRN (11:35)
[2023-06-11] MEDS: ANUSOL HC CREAM 30GM TOP PRN (13:52)
[2023-06-11 16:21] VITALS: BP 114/64; TEMP 97.6; O2SAT 100
[2023-06-11] MEDS: LITHIUM CARBONATE 150 MG CAP PO SCH (20:57)
[2023-06-11] MEDS: traZODone 50 MG TAB PO PRN (20:57)
[2023-06-12 06:11] VITALS: BP 97/52; TEMP 98.8; O2SAT 96
[2023-06-12] MEDS: PALIPERIDONE 3MG ER TAB (INVEGA) PO SCH (08:02)
[2023-06-12] MEDS: LIDOCAINE 5% (LIDODERM) PATCH TD SCH (08:03)
[2023-06-12] MEDS: MOM 30ML SUSPENSION UDC PO PRN (09:11)
[2023-06-12] MEDS: ANUSOL HC CREAM 30GM TOP PRN (13:05)
[2023-06-12] MEDS: DOCUSATE SODIUM 100MG CAPSULE PO SCH ×2 (14:18→21:20)
[2023-06-12 18:28] VITALS: BP 135/64; TEMP 98.8
[2023-06-12] MEDS: LITHIUM CARBONATE 150 MG CAP PO SCH (21:21)
[2023-06-13 06:08] VITALS: BP 121/55; TEMP 99.1; O2SAT 96
[2023-06-13] MEDS: DOCUSATE SODIUM 100MG CAPSULE PO SCH ×2 (08:22→21:37)
[2023-06-13] MEDS: PALIPERIDONE 3MG ER TAB (INVEGA) PO SCH (08:22)
[2023-06-13] MEDS: LIDOCAINE 5% (LIDODERM) PATCH TD SCH (08:23)
[2023-06-13] MEDS: ANUSOL HC CREAM 30GM TOP PRN (10:57)
[2023-06-13 16:37] VITALS: BP 101/64; TEMP 98.6; O2SAT 96
[2023-06-13] MEDS: SENNA 8.6 MG TAB (SENOKOT) PO PRN (16:53)
[2023-06-13] MEDS: LITHIUM CARBONATE 150 MG CAP PO SCH (21:37)
[2023-06-14 06:52] VITALS: BP 125/61; TEMP 98.9; O2SAT 97
[2023-06-14] MEDS: PALIPERIDONE 3MG ER TAB (INVEGA) PO SCH (08:36)
[2023-06-14] MEDS: LIDOCAINE 5% (LIDODERM) PATCH TD SCH (08:36)
[2023-06-14] MEDS: DOCUSATE SODIUM 100MG CAPSULE PO SCH ×2 (08:36→20:27)
[2023-06-14] MEDS: SENNA 8.6 MG TAB (SENOKOT) PO PRN (08:36)
[2023-06-14] MEDS: ANUSOL HC CREAM 30GM TOP PRN (08:37)
[2023-06-14 16:17] VITALS: BP 113/60; TEMP 97.7; O2SAT 98
[2023-06-14] MEDS: LITHIUM CARBONATE 150 MG CAP PO SCH (20:34)
[2023-06-15 07:02] VITALS: BP 117/59; TEMP 97; O2SAT 99
[2023-06-15] MEDS: PALIPERIDONE 3MG ER TAB (INVEGA) PO SCH (08:10)
[2023-06-15] MEDS: DOCUSATE SODIUM 100MG CAPSULE PO SCH ×2 (08:10→21:55)
[2023-06-15] MEDS: ANUSOL HC CREAM 30GM TOP PRN (08:11)
[2023-06-15] MEDS: LIDOCAINE 5% (LIDODERM) PATCH TD SCH (08:11)
[2023-06-15 16:02] VITALS: BP 120/63; TEMP 98.1; O2SAT 95
[2023-06-15] MEDS: traZODone 50 MG TAB PO PRN (21:55)
[2023-06-15] MEDS: LITHIUM CARBONATE 150 MG CAP PO SCH (21:55)
[2023-06-16 06:34] VITALS: BP 101/58; TEMP 98.2; O2SAT 95
[2023-06-16] MEDS: LIDOCAINE 5% (LIDODERM) PATCH TD SCH (09:00)
[2023-06-16] MEDS: PALIPERIDONE 3MG ER TAB (INVEGA) PO SCH (09:36)
[2023-06-16] MEDS: DOCUSATE SODIUM 100MG CAPSULE PO SCH ×2 (09:36→20:57)
[2023-06-16 16:11] VITALS: BP 122/62; TEMP 97.8; O2SAT 97
[2023-06-16] MEDS: LITHIUM CARBONATE 150 MG CAP PO SCH (20:57)
[2023-06-17 06:12] VITALS: BP 103/56; TEMP 97.7; O2SAT 100
[2023-06-17] MEDS: LIDOCAINE 5% (LIDODERM) PATCH TD SCH (09:00)
[2023-06-17] MEDS: DOCUSATE SODIUM 100MG CAPSULE PO SCH ×2 (09:10→20:38)
[2023-06-17] MEDS: PALIPERIDONE 3MG ER TAB (INVEGA) PO SCH (09:10)
[2023-06-17] MEDS: CETIRIZINE (ZyrTEC) 10 MG TAB PO SCH (11:25)
[2023-06-17 17:57] VITALS: BP 116/69; TEMP 97.5; O2SAT 96
[2023-06-17] MEDS: LITHIUM CARBONATE 150 MG CAP PO SCH (20:38)
[2023-06-18 06:14] VITALS: BP 116/59; TEMP 99.1; O2SAT 97
[2023-06-18] MEDS: DOCUSATE SODIUM 100MG CAPSULE PO SCH ×2 (08:20→20:56)
[2023-06-18] MEDS: CETIRIZINE (ZyrTEC) 10 MG TAB PO SCH (08:20)
[2023-06-18] MEDS: PALIPERIDONE 3MG ER TAB (INVEGA) PO SCH (08:20)
[2023-06-18] MEDS: LIDOCAINE 5% (LIDODERM) PATCH TD SCH (08:21)
[2023-06-18 08:57] VITALS: BP 116/59; TEMP 99.1; O2SAT 97
[2023-06-18 15:28] VITALS: BP 102/61; TEMP 98.4; O2SAT 97
[2023-06-18] MEDS: LITHIUM CARBONATE 150 MG CAP PO SCH (20:56)
[2023-06-19] MEDS: CETIRIZINE (ZyrTEC) 10 MG TAB PO SCH (08:50)
[2023-06-19] MEDS: PALIPERIDONE 3MG ER TAB (INVEGA) PO SCH (08:50)
[2023-06-19] MEDS: DOCUSATE SODIUM 100MG CAPSULE PO SCH ×2 (08:50→20:00)
[2023-06-19] MEDS: LIDOCAINE 5% (LIDODERM) PATCH TD SCH (08:50)
[2023-06-19 16:18] VITALS: BP 135/80; TEMP 96.4; O2SAT 99
[2023-06-19] MEDS: ACETAMINOPHEN TAB 650MG DOSE (2X325MG) PO PRN (20:00)
[2023-06-19] MEDS: LITHIUM CARBONATE 150 MG CAP PO SCH (20:01)
[2023-06-20 06:28] VITALS: BP 108/62; TEMP 98.4; O2SAT 95
[2023-06-20] MEDS: DOCUSATE SODIUM 100MG CAPSULE PO SCH ×2 (08:12→21:48)
[2023-06-20] MEDS: PALIPERIDONE 3MG ER TAB (INVEGA) PO SCH (08:12)
[2023-06-20] MEDS: CETIRIZINE (ZyrTEC) 10 MG TAB PO SCH (08:12)
[2023-06-20] MEDS: LIDOCAINE 5% (LIDODERM) PATCH TD SCH (08:12)
[2023-06-20 15:47] VITALS: BP 139/75; TEMP 97.2; O2SAT 97
[2023-06-20] MEDS: LITHIUM CARBONATE 150 MG CAP PO SCH (21:48)
[2023-06-21 06:02] VITALS: BP 106/57; TEMP 99; O2SAT 99
[2023-06-21] MEDS: CETIRIZINE (ZyrTEC) 10 MG TAB PO SCH (08:21)
[2023-06-21] MEDS: DOCUSATE SODIUM 100MG CAPSULE PO SCH ×2 (08:21→20:36)
[2023-06-21] MEDS: PALIPERIDONE 3MG ER TAB (INVEGA) PO SCH (08:21)
[2023-06-21] MEDS: LIDOCAINE 5% (LIDODERM) PATCH TD SCH (08:22)
[2023-06-21 18:31] VITALS: BP 130/67; TEMP 97.7
[2023-06-21] MEDS: LITHIUM CARBONATE 150 MG CAP PO SCH (20:35)
[2023-06-22 06:07] VITALS: BP 90/55; TEMP 97.7; O2SAT 95
[2023-06-22] MEDS: DOCUSATE SODIUM 100MG CAPSULE PO SCH ×2 (08:13→20:38)
[2023-06-22] MEDS: PALIPERIDONE 3MG ER TAB (INVEGA) PO SCH (08:13)
[2023-06-22] MEDS: CETIRIZINE (ZyrTEC) 10 MG TAB PO SCH (08:13)
[2023-06-22] MEDS: LIDOCAINE 5% (LIDODERM) PATCH TD SCH (08:14)
[2023-06-22 18:00] VITALS: BP 111/59; TEMP 98
[2023-06-22] MEDS: LITHIUM CARBONATE 150 MG CAP PO SCH (20:38)
[2023-06-23 06:38] VITALS: BP 92/52; TEMP 98.1; O2SAT 96
[2023-06-23] MEDS: LIDOCAINE 5% (LIDODERM) PATCH TD SCH (08:54)
[2023-06-23] MEDS: DOCUSATE SODIUM 100MG CAPSULE PO SCH ×2 (08:54→20:41)
[2023-06-23] MEDS: CETIRIZINE (ZyrTEC) 10 MG TAB PO SCH (08:54)
[2023-06-23] MEDS: PALIPERIDONE 3MG ER TAB (INVEGA) PO SCH (08:54)
[2023-06-23 16:03] VITALS: BP 113/66; TEMP 97.8; O2SAT 95
[2023-06-23] MEDS: LITHIUM CARBONATE 600MG CAP PO SCH (20:41)
[2023-06-24 06:19] VITALS: BP 101/56; TEMP 97.8; O2SAT 96
[2023-06-24] MEDS: CETIRIZINE (ZyrTEC) 10 MG TAB PO SCH (08:02)
[2023-06-24] MEDS: PALIPERIDONE 3MG ER TAB (INVEGA) PO SCH (08:02)
[2023-06-24] MEDS: DOCUSATE SODIUM 100MG CAPSULE PO SCH ×2 (08:02→21:16)
[2023-06-24] MEDS: LIDOCAINE 5% (LIDODERM) PATCH TD SCH (08:04)
[2023-06-24 16:12] VITALS: BP 111/58; TEMP 97.6; O2SAT 100
[2023-06-24] MEDS: LITHIUM CARBONATE 600MG CAP PO SCH (21:16)
[2023-06-25 06:27] VITALS: BP 102/54; TEMP 97.2; O2SAT 98
[2023-06-25] MEDS: LIDOCAINE 5% (LIDODERM) PATCH TD SCH (08:08)
[2023-06-25] MEDS: DOCUSATE SODIUM 100MG CAPSULE PO SCH ×2 (08:08→20:11)
[2023-06-25] MEDS: PALIPERIDONE 3MG ER TAB (INVEGA) PO SCH (08:08)
[2023-06-25] MEDS: CETIRIZINE (ZyrTEC) 10 MG TAB PO SCH (08:08)
[2023-06-25 17:26] VITALS: BP 99/55; TEMP 98; O2SAT 97
[2023-06-25] MEDS: LITHIUM CARBONATE 600MG CAP PO SCH (20:11)
[2023-06-26 06:04] VITALS: BP 148/83; TEMP 98.5; O2SAT 97
[2023-06-26] MEDS: LIDOCAINE 5% (LIDODERM) PATCH TD SCH (08:19)
[2023-06-26] MEDS: CETIRIZINE (ZyrTEC) 10 MG TAB PO SCH (08:21)
[2023-06-26] MEDS: DOCUSATE SODIUM 100MG CAPSULE PO SCH ×2 (08:21→20:12)
[2023-06-26] MEDS: PALIPERIDONE 3MG ER TAB (INVEGA) PO SCH (08:21)
[2023-06-26] MEDS: MOM 30ML SUSPENSION UDC PO PRN (09:29)
[2023-06-26] MEDS: SENNA 8.6 MG TAB (SENOKOT) PO PRN (11:24)
[2023-06-26 18:23] VITALS: BP 105/57; TEMP 97.7; O2SAT 98
[2023-06-26] MEDS: LITHIUM CARBONATE 600MG CAP PO SCH (20:12)
[2023-06-27 05:57] VITALS: BP 101/54; TEMP 97.6; O2SAT 96
[2023-06-27] MEDS: PALIPERIDONE 3MG ER TAB (INVEGA) PO SCH (08:03)
[2023-06-27] MEDS: DOCUSATE SODIUM 100MG CAPSULE PO SCH ×2 (08:03→20:09)
[2023-06-27] MEDS: CETIRIZINE (ZyrTEC) 10 MG TAB PO SCH (08:03)
[2023-06-27] MEDS: LIDOCAINE 5% (LIDODERM) PATCH TD SCH (08:04)
[2023-06-27 17:32] VITALS: BP 97/55; TEMP 98.4; O2SAT 97
[2023-06-27] MEDS: LITHIUM CARBONATE 600MG CAP PO SCH (20:09)
[2023-06-28 06:37] VITALS: BP 98/59; TEMP 98.4; O2SAT 95
[2023-06-28] MEDS: LIDOCAINE 5% (LIDODERM) PATCH TD SCH (08:30)
[2023-06-28] MEDS: PALIPERIDONE 3MG ER TAB (INVEGA) PO SCH (08:32)
[2023-06-28] MEDS: CETIRIZINE (ZyrTEC) 10 MG TAB PO SCH (08:32)
[2023-06-28] MEDS: DOCUSATE SODIUM 100MG CAPSULE PO SCH ×2 (08:32→20:39)
[2023-06-28 18:03] VITALS: BP 98/58; TEMP 97.7; O2SAT 95
[2023-06-28] MEDS: LITHIUM CARBONATE 600MG CAP PO SCH (20:39)
[2023-06-29 06:45] VITALS: BP 159/92; TEMP 97.8; O2SAT 97
[2023-06-29] MEDS: PALIPERIDONE 3MG ER TAB (INVEGA) PO SCH (08:01)
[2023-06-29] MEDS: CETIRIZINE (ZyrTEC) 10 MG TAB PO SCH (08:01)
[2023-06-29] MEDS: DOCUSATE SODIUM 100MG CAPSULE PO SCH ×2 (08:01→21:14)
[2023-06-29] MEDS: LIDOCAINE 5% (LIDODERM) PATCH TD SCH (09:00)
[2023-06-29 18:12] VITALS: BP 111/56; TEMP 97.6; O2SAT 96
[2023-06-29] MEDS: LITHIUM CARBONATE 600MG CAP PO SCH (21:15)
[2023-06-30 06:18] VITALS: BP 111/58; TEMP 97.7; O2SAT 96
[2023-06-30] MEDS: PALIPERIDONE 3MG ER TAB (INVEGA) PO SCH (08:08)
[2023-06-30] MEDS: CETIRIZINE (ZyrTEC) 10 MG TAB PO SCH (08:08)
[2023-06-30] MEDS: LIDOCAINE 5% (LIDODERM) PATCH TD SCH (08:08)
[2023-06-30] MEDS: DOCUSATE SODIUM 100MG CAPSULE PO SCH ×2 (08:08→20:55)
[2023-06-30 18:25] VITALS: BP 134/67; TEMP 97.7; O2SAT 96
[2023-06-30] MEDS: LITHIUM CARBONATE 600MG CAP PO SCH (20:55)
[2023-07-01 06:54] VITALS: BP 135/66; TEMP 97.4; O2SAT 97
[2023-07-01] MEDS: PALIPERIDONE 3MG ER TAB (INVEGA) PO SCH (08:30)
[2023-07-01] MEDS: CETIRIZINE (ZyrTEC) 10 MG TAB PO SCH (08:30)
[2023-07-01] MEDS: DOCUSATE SODIUM 100MG CAPSULE PO SCH ×2 (08:30→21:23)
[2023-07-01] MEDS: LIDOCAINE 5% (LIDODERM) PATCH TD SCH (09:00)
[2023-07-01 14:48] VITALS: BP 122/75; TEMP 97.5; O2SAT 99
[2023-07-01] MEDS: LITHIUM CARBONATE 600MG CAP PO SCH (21:23)
[2023-07-02 06:49] VITALS: BP 138/62; TEMP 97.1; O2SAT 98
[2023-07-02] MEDS: DOCUSATE SODIUM 100MG CAPSULE PO SCH ×2 (08:27→20:54)
[2023-07-02] MEDS: CETIRIZINE (ZyrTEC) 10 MG TAB PO SCH (08:27)
[2023-07-02] MEDS: PALIPERIDONE 3MG ER TAB (INVEGA) PO SCH (08:27)
[2023-07-02] MEDS: LIDOCAINE 5% (LIDODERM) PATCH TD SCH (08:28)
[2023-07-02 17:23] VITALS: BP 99/63; TEMP 97.9; O2SAT 94
[2023-07-02] MEDS: LITHIUM CARBONATE 600MG CAP PO SCH (20:54)
[2023-07-03 06:46] VITALS: BP 134/70; TEMP 97.6; O2SAT 95
[2023-07-03] MEDS: CETIRIZINE (ZyrTEC) 10 MG TAB PO SCH (08:08)
[2023-07-03] MEDS: PALIPERIDONE 3MG ER TAB (INVEGA) PO SCH (08:09)
[2023-07-03] MEDS: DOCUSATE SODIUM 100MG CAPSULE PO SCH ×2 (08:09→20:57)
[2023-07-03] MEDS: LIDOCAINE 5% (LIDODERM) PATCH TD SCH (08:09)
[2023-07-03 16:56] VITALS: BP 134/72; TEMP 97.8; O2SAT 99
[2023-07-03] MEDS: LITHIUM CARBONATE 600MG CAP PO SCH (20:57)
[2023-07-04 06:28] VITALS: BP 112/58; TEMP 98.2; O2SAT 96
[2023-07-04] MEDS: LIDOCAINE 5% (LIDODERM) PATCH TD SCH (08:28)
[2023-07-04] MEDS: CETIRIZINE (ZyrTEC) 10 MG TAB PO SCH (08:28)
[2023-07-04] MEDS: DOCUSATE SODIUM 100MG CAPSULE PO SCH ×2 (08:28→21:11)
[2023-07-04] MEDS: PALIPERIDONE 3MG ER TAB (INVEGA) PO SCH (08:28)
[2023-07-04 17:28] VITALS: BP 121/55; TEMP 98.3; O2SAT 96
[2023-07-04] MEDS: LITHIUM CARBONATE 600MG CAP PO SCH (21:12)
[2023-07-05 06:48] VITALS: BP 129/71; TEMP 98.6; O2SAT 96
[2023-07-05] MEDS: PALIPERIDONE 3MG ER TAB (INVEGA) PO SCH (08:59)
[2023-07-05] MEDS: DOCUSATE SODIUM 100MG CAPSULE PO SCH ×2 (08:59→20:42)
[2023-07-05] MEDS: CETIRIZINE (ZyrTEC) 10 MG TAB PO SCH (08:59)
[2023-07-05] MEDS: LIDOCAINE 5% (LIDODERM) PATCH TD SCH (09:00)
[2023-07-05 19:23] VITALS: BP 115/69; TEMP 97.7; O2SAT 96
[2023-07-05] MEDS: LITHIUM CARBONATE 600MG CAP PO SCH (20:42)
[2023-07-06 06:05] VITALS: BP 96/58; TEMP 99.1; O2SAT 98
[2023-07-06] MEDS: DOCUSATE SODIUM 100MG CAPSULE PO SCH ×2 (08:19→20:49)
[2023-07-06] MEDS: PALIPERIDONE 3MG ER TAB (INVEGA) PO SCH (08:19)
[2023-07-06] MEDS: CETIRIZINE (ZyrTEC) 10 MG TAB PO SCH (08:19)
[2023-07-06] MEDS: LIDOCAINE 5% (LIDODERM) PATCH TD SCH (08:38)
[2023-07-06 18:08] VITALS: BP 131/71; TEMP 99.1; O2SAT 97
[2023-07-06] MEDS: LITHIUM CARBONATE 600MG CAP PO SCH (20:49)
[2023-07-07 06:27] VITALS: BP 105/56; TEMP 97.5; O2SAT 98
[2023-07-07] MEDS: DOCUSATE SODIUM 100MG CAPSULE PO SCH ×2 (08:01→21:06)
[2023-07-07] MEDS: CETIRIZINE (ZyrTEC) 10 MG TAB PO SCH (08:01)
[2023-07-07] MEDS: PALIPERIDONE 3MG ER TAB (INVEGA) PO SCH (08:01)
[2023-07-07] MEDS: LIDOCAINE 5% (LIDODERM) PATCH TD SCH (08:02)
[2023-07-07 16:08] VITALS: BP 113/64; TEMP 98.4; O2SAT 97
[2023-07-07] MEDS: MAALOX 30 ML SUSP *UDC PO PRN (17:49)
[2023-07-07] MEDS: LITHIUM CARBONATE 600MG CAP PO SCH (21:06)
[2023-07-08 06:21] VITALS: BP 110/58; TEMP 97.8; O2SAT 95
[2023-07-08 08:36] VITALS: BP 110/58; TEMP 97.8; O2SAT 95
[2023-07-08] MEDS: LIDOCAINE 5% (LIDODERM) PATCH TD SCH (08:50)
[2023-07-08] MEDS: PALIPERIDONE 3MG ER TAB (INVEGA) PO SCH (08:50)
[2023-07-08] MEDS: CETIRIZINE (ZyrTEC) 10 MG TAB PO SCH (08:50)
[2023-07-08] MEDS: DOCUSATE SODIUM 100MG CAPSULE PO SCH (08:50)
[2023-07-08] MEDS ORDERED: PALIPERIDONE PAL 234MG/1.5ML INJ (INVEGA)(FREE PSY INPT ONLY) IM ONE (09:00)
[2023-07-08 12:44] VITALS: BP 115/90; TEMP 97.6; O2SAT 99
== END 2023-07-08 12:45 | DRG 753 ==
LOC: M ED 18:54 → M ED INP 05-27 14:40 → M PSY 05-27 17:33
PROVIDERS: ADMIT Student in an Organized Health Care Education/Training Program; ATTEND Student in an Organized Health Care Education/Training Program
DX: F31.60 Bipolar disorder, current episode mixed, unspecified (principal); U07.1 COVID-19; R45.851 Suicidal ideations; F43.10 Post-traumatic stress disorder, unspecified; F17.200 Nicotine dependence, unspecified, uncomplicated; F12.10 Cannabis abuse, uncomplicated; F11.10 Opioid abuse, uncomplicated; K21.9 Gastro-esophageal reflux disease without esophagitis; K44.9 Diaphragmatic hernia without obstruction or gangrene; Z28.310 Unvaccinated for COVID-19; Z81.8 Family history of other mental and behavioral disorders; Z62.810 Personal history of physical and sexual abuse in childhood; Z79.899 Other long term (current) drug therapy; Z59.02 Unsheltered homelessness; Z88.0 Allergy status to penicillin; Z88.8 Allergy status to other drugs, medicaments and biological substances; Z88.1 Allergy status to other antibiotic agents; Z91.018 Allergy to other foods; Z91.040 Latex allergy status; Z65.2 Problems related to release from prison; K59.00 Constipation, unspecified